=== PATIENT | male | born 1930 | race Asian ===

== ENCOUNTER 2016-06-08 23:17 | Emergency (ER) | payer OTHER ==
--- NOTE | 2016-06-08 23:28 | PDOC ---
History of Present Illness <Sudhir Saucedo - Last Filed: 06/09/16 03:27> - General History Source: Patient Exam Limitations: No Limitations - History of Present Illness Initial Comments: 06/09/16 00:21 The patient is a 86-year-old male, with a significant past medical history of HTN, hypercholesterolemia, on diuretics, who presents to the emergency department via EMS with nasal congestion and a headache for 6 weeks. The patient reports that his headache is severe. He reports he cannot breath through his nose due to the nasal congestion. He reports associated rhinorrhea and tactile fever. As per EMS, his blood pressure was 157/90. The patient understands but does not speak Bhutanese. We used a Belarusian cryptographer. The patient denies chest pain, shortness of breath, and dizziness. The patient denies chills, abdominal pain, nausea, vomit, diarrhea and constipation. The patient denies dysuria, frequency, urgency and hematuria. Allergies: None reported Past surgical history: None reported <Daniella Ventura - Last Filed: 06/09/16 03:29> - General Stated Complaint: SINUS INFECTION Time Seen by Provider: 06/08/16 23:27 Past History <Sudhir Saucedo - Last Filed: 06/09/16 03:27> <Daniella Ventura - Last Filed: 06/09/16 03:29> - Past Medical History Allergies/Adverse Reactions: Allergies Allergy/AdvReac Type Severity Reaction Status Date / Time No Known Allergies Allergy Verified 06/09/16 00:20 Home Medications: Ambulatory Orders Amox-Tr/K Cl [Augmentin - 875Mg Tablet] 1 tab PO BID #20 tablet 06/09/16 Atorvastatin Ca [Lipitor] 10 mg PO DAILY 06/09/16 Diltiazem Cd [Cardizem Cd -] 300 mg PO DAILY 06/09/16 Docusate Sodium [Colace -] 100 mg PO DAILY 06/09/16 Doxazosin Mesylate [Cardura] 4 mg PO DAILY 06/09/16 Esomeprazole Magnesium [Nexium 24Hr] 20 mg PO DAILY 06/09/16 Fluticasone Prop 0.05% Nasal [Flonase -] 1 - 2 spray NS DAILY #1 spray.pump 07/23 Loratadine [Alavert] 10 mg PO DAILY 06/09/16 Multivit-Min/Iron Fum/Folic AC [Pprgq-Oewbwhj-Qnqpmtkc Tablet] 1 each PO DAILY 06/09/16 [place]-3 Acid Ethyl Esters [Lovaza -] 2,000 mg PO BID 06/09/16 Review of Systems - Review of Systems Able to Perform ROS?: Yes Comments:: 06/09/16 00:21 CONSTITUTIONAL: Present: (+) fever Absent: chills, diaphoresis, generalized weakness, malaise, loss of appetite HEENT: Present: (+) rhinorrhea, (+) nasal congestion Absent: throat pain, throat swelling, difficulty swallowing, mouth swelling, ear pain, eye pain, visual changes CARDIOVASCULAR: Absent: chest pain, syncope, palpitations, irregular heart rate, lightheadedness , peripheral edema RESPIRATORY: Absent: cough, shortness of breath, dyspnea with exertion, orthopnea, wheezing, stridor, hemoptysis GASTROINTESTINAL: Absent: abdominal pain, abdominal distension, nausea, vomiting, diarrhea, constipation, melena, hematochezia GENITOURINARY: Absent: dysuria, frequency, urgency, hesitancy, hematuria, flank pain, genital pain MUSCULOSKELETAL: Absent: myalgia, arthralgia, joint swelling SKIN: Absent: rash, itching, pallor HEMATOLOGIC/IMMUNOLOGIC: Absent: easy bleeding, easy bruising, lymphadenopathy, frequent infections ENDOCRINE: Absent: unexplained weight gain, unexplained weight loss, heat intolerance, cold intolerance NEUROLOGIC: Present: (+) headache Absent: focal weakness or paresthesias, dizziness, unsteady gait, seizure, mental status changes, bladder or bowel incontinence PSYCHIATRIC: Absent: anxiety, depression, suicidal or homicidal ideation, hallucinations. Is the patient limited Bhutanese proficient: Yes <Daniella Ventura - Last Filed: 06/09/16 03:29> *Physical Exam - Vital Signs Last Vital Signs Temp Pulse Resp BP Pulse Ox 97.3 F L 69 19 137/89 97 06/09/16 00:16 06/09/16 00:16 06/09/16 00:16 06/09/16 00:16 06/09/16 00:16 - Physical Exam Comments: 06/09/16 00:21 GENERAL: Well developed, well nourished. Awake and alert. In no acute distress. HEENT: (+) Some post-nasal drip. (+) Exudate in both nostrils, more on the left. Normocephalic, atraumatic. PERRLA, EOMI. No conjunctival pallor. Sclera are non- icteric. Moist mucous membranes. NECK: Supple. Full ROM. No JVD. Carotid pulses 2+ and symmetric, without bruits. No thyromegaly. No lymphadenopathy. CARDIOVASCULAR: Regular rate and rhythm. No murmurs, rubs, or gallops. Distal pulses are 2+ and symmetric. PULMONARY: (+) Some crackles at the lung bases. No wheezing, rales or rhonchi. ABDOMINAL: Soft. Non-tender. Non-distended. No rebound or guarding. No organomegaly. Normoactive bowel sounds. MUSCULOSKELETAL Normal range of motion at all joints. No bony deformities or tenderness. No CVA tenderness. EXTREMITIES: No cyanosis. No clubbing. No peripheral edema. No calf tenderness. SKIN: Warm and dry. Normal capillary refill. No rashes. No jaundice. NEUROLOGICAL: Alert, awake, appropriate. Cranial nerves 2-12 intact. No deficits to light touch and temperature in face, upper extremities and lower extremities. No motor deficits in the in face, upper extremities and lower extremities. Normoreflexic in the upper and lower extremities. Normal speech. Toes are downgoing bilaterally. Gait is normal. PSYCHIATRIC: Cooperative. Good eye contact. Appropriate mood and affect. <Daniella Ventura - Last Filed: 06/09/16 03:29> ED Treatment Course - LABORATORY CBC & Chemistry Diagram: 06/09/16 00:45 06/09/16 00:45 <Sudhir Saucedo - Last Filed: 06/09/16 03:27> - LABORATORY CBC & Chemistry Diagram: 06/09/16 00:45 06/09/16 00:45 - RADIOLOGY Radiograph Interpretation: 06/09/16 03:28 CT HEAD W/O CONTRAST FINDINGS: There is no CT evidence of acute territorial infarction. Patchy periventricular and subcortical white matter hypoattenuations seen. These are nonspecific and can be seen in the setting of chronic microvascular ischemic changes. Intracranial vascular calcifications noted. There is no acute intracranial hemorrhage, mass effect or cerebral edema identified. The ventricles are unremarkable. Basilar cisterns are patent. No abnormal intra- axial or extra-axial fluid collection is seen. The bones of the calvarium and imaged skull base demonstrate no acute abnormality. The imaged paranasal sinuses are unremarkable. Bilateral mastoid air cells are underpneumatized. There is cavity is clear. Amorphous soft tissue in the right external auditory canal suggestive of cerumen. Imaged orbits demonstrate no acute abnormality. THIS DOCUMENT HAS BEEN ELECTRONICALLY SIGNED Chapo Nixon MD. CT SINUS W/O CONTRAST IMPRESSION: Paranasal sinus because of thickening noted most pronounced in bilateral maxillary sinuses with a suggestion of small fluid levels. Although nonspecific, these findings can be seen in the setting of acute sinusitis. No evidence of osseous erosions. No acute fracture. Bilateral temporomandibular joint and craniocervical junction are intact. No acute abnormality the visualized orbits or intracranial structures. Sequela bilateral lens extraction. THIS DOCUMENT HAS BEEN ELECTRONICALLY SIGNED Chapo Nixon MD. CHEST XR IMPRESSION: Nonspecific increased left lower lobe opacities may represent atelectasis, pneumonia versus stigmata of aspiration. Blunting of the bilateral costophrenic angles, left more than right common represent atelectasis and/or trace pleural effusions. Cardiomegaly. Aortic calcifications. 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 High riding humeral head with pseudoarthrosis suggestive of chronic rotator cuff tears. THIS DOCUMENT HAS BEEN ELECTRONICALLY SIGNED Chapo Nixon MD. <Daniella Ventura - Last Filed: 06/09/16 03:29> *DC/Admit/Observation/Transfer - Discharge Dispostion Admit: No <Sudhir Saucedo - Last Filed: 06/09/16 03:27> - Attestations Scribe Attestion: 06/09/16 00:22 Documentation prepared by Daniella Ventura, acting as certified medical dosimetrist for Sudhir Saucedo MD. <Daniella Ventura - Last Filed: 06/09/16 03:29> Diagnosis at time of Disposition: Sinusitis - Discharge Dispostion Disposition: HOME Condition at time of disposition: Stable - Prescriptions Prescriptions: Amox-Tr/K Cl [Augmentin - 875Mg Tablet] 1 tab PO BID #20 tablet Fluticasone Prop 0.05% Nasal [Flonase -] 1 - 2 spray NS DAILY #1 spray.pump - Patient Instructions Printed Discharge Instructions: Sinusitis Additional Instructions: follow up with your doctor Saturday or Saturday; return if worse.
[2016-06-09 00:21] VITALS: BP 137/89; PULSE 69; TEMP 97.3; BMI 21.2
[2016-06-09 00:56] LABS: BASOPHIL 1.1 % (0-2.0); EOSINOPHIL 11.1 % (0-4.5); MCH 31.4 pg (25.7-33.7); MCHC 34.2 g/dl (32.0-35.9); MEAN CELL VOLUME 91.8 fl (80-96); MEAN PLT VOLUME 7.2 fl (7.5-11.1); NEUTROPHILS 55.1 % (42.8-82.8); PLATELET COUNT 173 K/MM3 (134-434); RDW 15.1 % (11.9-15.9)
[2016-06-09 01:19] LABS: URINE APPEARANCE CLEAR; URINE BILIRUBIN NEGATIVE (NEGATIVE); URINE BLOOD NEGATIVE (NEGATIVE); URINE COLOR LTYELLOW; URINE GLUCOSE (UA) NEGATIVE (NEGATIVE); URINE KETONE NEGATIVE (NEGATIVE); URINE LEUK ESTERASE NEGATIVE (NEGATIVE); URINE NITRITE NEGATIVE (NEGATIVE); URINE PROTEIN NEGATIVE (NEGATIVE); URINE UROBILINOGEN NEGATIVE E.U./dl (0.2-1.0)
[2016-06-09 01:48] LABS: ALBUMIN 3.5 g/dl (3.4-5.0); ALK PHOS 46 U/L (45-117); ANION GAP 9 (8-16); BILIRUBIN,TOTAL 0.4 mg/dL (0.2-1.0); CALCIUM 8.7 mg/dL (8.5-10.1); CO2 26 mmol/L (21-32); CREATININE 1.1 mg/dL (0.7-1.3); GLUCOSE,RANDOM 95 mg/dL (74-106); SGOT/AST 15 U/L (15-37); SGPT/ALT 20 U/L (12-78); TOT PROT 7.2 g/dl (6.4-8.2)
[2016-06-09] MEDS ORDERED: AMPICILLIN NA/SULBACTAM NA 3 GM in SODIUM CHLORIDE 100 ML IVPB ONE (02:46)
== END 2016-06-09 04:36 | disposition home or self-care (01) ==
LOC: JER 23:17
DX: J01.00 Acute maxillary sinusitis, unspecified (principal); I10 Essential (primary) hypertension; E78.00 Pure hypercholesterolemia, unspecified
CPT/HCPCS: 36415; 70450-TC; 70486-TC; 71020-TC; 80053; 81003; 85025; 87086; 96365; 99282-25

== ENCOUNTER 2019-02-13 08:58 | Inpatient (IN) | payer OTHER ==
--- NOTE | 2019-02-13 09:35 | PDOC ---
History of Present Illness - General Chief Complaint: Injury Stated Complaint: FALL Time Seen by Provider: 02/13/19 09:15 History Source: Care Provider, Family, Assistant Community Director Used Exam Limitations: Clinical Condition, Language Barrier - History of Present Illness Initial Comments: 02/13/19 09:33 88 YOM with h/o HTN, HLD, dementia, hearing loss presenting after unwitnessed fall and unknown down time. BIB his home health aid Mr Whatley, who found him on the floor moaning when he came for a visit today. Per daughter via phone, in the last 2 months - he has experienced frequent falls, 2-3X during this time. he has had increased levels of confusion and difficulty moving/walking due to his progressive decline/dementia. No ASA or anticoagulants. Mr Whatley care provider, home health aid 3X/week history limited due to patient's dementia and hearing impairment. freight conductor via Pashto used and collateral information from daughter. daughter: [phone] Lonnie Whatley 02/13/19 09:40 02/13/19 09:46 02/13/19 09:49 Past History - Past Medical History Allergies/Adverse Reactions: Allergies Allergy/AdvReac Type Severity Reaction Status Date / Time No Known Allergies Allergy Verified 02/13/19 09:45 Home Medications: Ambulatory Orders Atorvastatin Ca [Lipitor] 10 mg PO DAILY 06/09/16 Diltiazem Cd [Cardizem Cd -] 300 mg PO DAILY 06/09/16 Doxazosin Mesylate [Cardura] 4 mg PO DAILY 06/09/16 Multivit-Min/Iron Fum/Folic AC [Xfjyb-Gaxwjzv-Zkbbcqzl Tablet] 1 each PO DAILY 06/09/16 Lubiprostone [Amitiza] 24 mcg PO ASDIR 02/13/19 - Surgical History GI Surgery: Yes (Gallstone) - Psycho Social/Smoking Cessation Hx Smoking History: Never smoked Hx Alcohol Use: No Drug/Substance Use Hx: No Substance Use Type: None Review of Systems - Review of Systems Able to Perform ROS?: No (dementia, clinical cond) *Physical Exam - Physical Exam Comments: 02/13/19 09:42 Physical exam General: awake and alert, NAD. HEENT: normocephalic. +left eyebrow vertical superficial abrasion. nonbleeding , nontender, no crepitus. PERRL, EOMI, clear conjunctiva, anicteric, dry mucus membranes, clear oropharynx, no oral lesions.. Neck: neck supple, FROM Resp: CTAB, normal and even respirations, no respiratory distress CVS: RRR, no murmurs, 2+ peripheral pulses throughout, no peripheral edema Abdomen: soft, NTND, no rebound or guarding. Back: nontender, normal inspection and ROM MSK: no edema, CARRERA x4, ROM intact. No clubbing or cyanosis. normal bulk and tone, pelvis stable, FROM in prox and distal joints.. Extremities: no calf tenderness Neuro: alert, demented, speech clear. Psych: Calm and cooperative Skin: warm and well perfused, cap refill <2 sec, normal color, no rash or skin discoloration. Heart Score/ECG Review #1 ECG reviewed & interpreted by me at: 09:40 General ECG Interpretation: Normal Rate Compared to previous ECG there are: Previous ECG unavail 02/13/19 09:47 EKG normal sinus rhythm at 72 bpm, narrow QRS, ST and T wave segments and morphology normal. + T wave abnormalities with deep TWI in V1-6. some limitations with artifact. ED Treatment Course - LABORATORY CBC & Chemistry Diagram: 02/14/19 05:55 02/14/19 05:55 - RADIOLOGY Radiology Studies Ordered: Category Date Time Status CERVICAL SPINE CT W/O CONTR [CT] Stat CT Scan 02/13/19 09:[address] W/O CONTRAST [CT] Stat CT Scan 02/13/19 09:[address] WITHOUT CONTRAST [CT] Stat CT Scan 02/13/19 09:28 Ordered CHEST PA & LAT [RAD] Stat Radiology 02/13/19 09:29 Ordered Medical Decision Making - Critical Care Time Total Critical Care Time (minutes): 45 (metabolic crisis, rhabdomyolysis, NSTEMI ) Critical Care Statement: The care of this patient involved high complexity decision making to prevent further life threatening deterioration of the patient 's condition and/or to evaluate & treat vital organ system(s) failure or risk of failure. - Medical Decision Making 02/13/19 10:07 Vital Signs Temp Pulse Resp BP Pulse Ox 97 F L 74 18 144/86 100 02/13/19 09:52 02/13/19 09:37 02/13/19 09:37 02/13/19 09:37 02/13/19 09:37 Vital signs are within normal limits, afebrile rectally. Fingerstick is 80. Frontal diagnosis includes rhabdomyolysis, acute kidney injury, dehydration, electrolyte/metabolic derangements, ACS, arrhythmia, ICH, CVA, facial fracture, contusion, cervical spine injury/fracture, infection EKG is as documented with diffuse T wave inversions primarily in the anterolateral leads, no priors to compare to. This is concerning for ischemic process versus intracranial hemorrhage so will expedite CT imaging. Cardiac enzymes, basic labs and lites, creatinine function indicated. There is straightening of the cervical spine, multilevel degenerative disc disease, no acute fracture subluxation is seen, CT head with chronic sinusitis without evidence of intracranial bleed, there is moderate volume loss and ventricular dilatation, no infarction or hemorrhage. No facial fractures noted. Xray of pelvis with ?impacted/shortening of rt femoral neck, will get CT pelvis to elucidate this; CT pelvis with subacute sacral alae fx, but no pelvic/hip fx acutely. analgesia given copious IVF hydration to flush kidneys for rhabdo. Laboratory findings are significant for normal CBC, creatinine is elevated at 1.7 and CK level/troponins are also significantly elevated. Patient has evidence of acute rhabdomyolysis with new onset renal insufficiency, baseline is normal from 2017, today creatinine is 1.7. Troponin also elevated 0.15 this could most likely be metabolic/demand ischemia with EKG changes noted, deep T wave inversions in anterolateral distribution. No elevations or depressions are noted. Patient is to get Toth catheter, IV fluid hydration and admission to telemetry for rhabdomyolysis/BRUNILDA/elevated troponins. 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 spoke with Dr Sorto, will come to evaluate and agree likely metabolic related/demand ischemia. admit to Dr Kay s/o to Dr Roach 02/14/19 11:03 Discharge - Discharge Information Problems reviewed: Yes Clinical Impression/Diagnosis: Rhabdomyolysis, BRUNILDA (acute kidney injury), Elevated troponin Condition: Guarded - Admission Yes - Follow up/Referral - Patient Discharge Instructions - Post Discharge Activity
[2019-02-13] MEDS ORDERED: SODIUM CHLORIDE 0.9% 500 ML INFUS.BAG IV ONE ×2 (09:48→10:47)
[2019-02-13 10:19] VITALS: BMI 25.0
[2019-02-13 10:23] LABS: BASO % 0.7 % (0-2.0); EOS % 4.8 % (0-4.5); HEMATOCRIT 35.6 % (35.4-49); HEMOGLOBIN 12.2 GM/dL (11.7-16.9); LYMPH % 6.7 % (8-40); MCH 32.2 pg (25.7-33.7); MCHC 34.3 g/dl (32.0-35.9); MEAN CELL VOLUME 93.9 fl (80-96); MEAN PLT VOLUME 7.4 fl (7.5-11.1); MONO % 6.1 % (3.8-10.2); NEUT % 81.7 % (42.8-82.8); PLATELET COUNT 230 K/MM3 (134-434); RBC 3.79 M/mm3 (4.00-5.60); RDW 14.5 % (11.9-15.9); WHITE BLOOD COUNT 7.5 K/mm3 (4.0-10.0)
[2019-02-13 10:35] LABS: INR 1.05 (0.83-1.09); PROTHROMBIN TIME (PATIENT) 12.4 SEC (9.7-13.0)
[2019-02-13 11:05] LABS: BILIRUBIN,TOTAL 0.7 mg/dL (0.2-1); BLOOD UREA NITROGEN 34.1 mg/dL (7-18); CALCIUM 8.6 mg/dL (8.5-10.1); CREATININE 1.7 mg/dL (0.55-1.3); POTASSIUM 4.8 mmol/L (3.5-5.1); TOT PROT 6.5 g/dl (6.4-8.2)
[2019-02-13 11:06] LABS: EPI CELLS 4.3 /HPF (0-5/HPF); HYALINE CASTS 2 /lpf (0-8); URINE APPEARANCE CLEAR; URINE BACTERIA 3.6 /hpf (NEGATIVE); URINE BILIRUBIN NEGATIVE (NEGATIVE); URINE COLOR YELLOW; URINE GLUCOSE (UA) NEGATIVE (NEGATIVE); URINE KETONE NEGATIVE (NEGATIVE); URINE LEUK ESTERASE NEGATIVE (NEGATIVE); URINE NITRITE NEGATIVE (NEGATIVE); URINE PROTEIN NEGATIVE (NEGATIVE); URINE RBC 9 /hpf (0-4); URINE UROBILINOGEN 0.2 mg/dL (0.2-1.0); URINE WBC 2 /hpf (0-5)
[2019-02-13] MEDS: LACTATED RINGERS SOLUTION 1,000 ML/1,000 ML INFUS.BAG IV SCH ×2 (12:32→17:29)
--- NOTE | 2019-02-13 12:41 | HP ---
CHIEF COMPLAINT: Unwitnessed fall PCP: Dr. Lonnie Whatley HISTORY OF PRESENT ILLNESS: 88yo Luxembourgish and Sammarinese speaking M with h/o HTN, HLD, mild dementia, and atrial fibrillation who presents today after unwitnessed mechanical fall. Pt's SHEEP FARM WORKER presented with him and per ER sign-off, the SHEEP FARM WORKER found the patient collapsed on the floor. The SHEEP FARM WORKER only comes 3x per week and it is unknown how long the patient had fallen on the floor. The patient did not have any deviation from baseline mentation per the aide and didn't see any signs of urinary or bowel incontinence. Pt was sent here for further evaluation. Upon workup pt was found to have elevated CPK with BRUNILDA.. Daughter (Juanjo) was caled , however she is not in close touch with her father and did not have any significant medical information. 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 WORKER 3x/wk Allergies No Known Allergies Allergy (Verified 02/13/19 09:45) HOME MEDICATIONS: Home Medications Medication Instructions Recorded Atorvastatin Ca [Lipitor] 10 mg PO DAILY 06/09/16 Diltiazem Cd [Cardizem Cd -] 300 mg PO DAILY 06/09/16 Doxazosin Mesylate [Cardura] 4 mg PO DAILY 06/09/16 Multivit-Min/Iron Fum/Folic AC 1 each PO DAILY 06/09/16 [Sgkjx-Ormhelh-Jaypmuyb Tablet] Lubiprostone [Amitiza] 24 mcg PO ASDIR 02/13/19 REVIEW OF SYSTEMS Not able to obtain due to language and clinical barriers PHYSICAL EXAMINATION Vital Signs - 24 hr 02/13/19 02/13/19 02/13/19 09:14 09:37 09:52 Temperature 98 F 98 F 97 F L Pulse Rate 74 Pulse Rate [ Left Radial] Respiratory 18 Rate Blood Pressure 144/86 Blood Pressure [Left Arm] O2 Sat by Pulse 100 100 Oximetry (%) 02/13/19 10:57 Temperature 97.2 F L Pulse Rate Pulse Rate [ 88 Left Radial] Respiratory 18 Rate Blood Pressure Blood Pressure 144/88 [Left Arm] O2 Sat by Pulse 100 Oximetry (%) GENERAL: Awake, alert, and fully oriented, in no acute distress. HEENT: NC, L vertical eyebrow superficial laceration, no ecchymotic areas, no hematomas of cranium, facial bone stability, MMM NECK: No JVD LUNGS: CTA bilaterally. No wheezes, and no crackles. No accessory muscle use. HEART: RRR, normal S1 and S2 with 3/6 crescendo-decrescendo murmur heard in all aspects. No carotid radiation. No radiation to axilla ABDOMEN: Soft, nontender, not distended, normoactive bowel sounds, no guarding, no rebound, no masses. No hepatomegaly or splenomegaly. MUSCULOSKELETAL: Normal range of motion at all joints. No bony deformities or tenderness. No CVA tenderness. UPPER EXTREMITIES: 2+ pulses, warm, well-perfused. No cyanosis. No clubbing. No peripheral edema. LOWER EXTREMITIES: 2+ pulses, warm, well-perfused. No calf tenderness. No peripheral edema. NEUROLOGICAL: Cranial nerves II-XII intact. Normal speech. Normal gait. PSYCHIATRIC: Cooperative. Good eye contact. Appropriate mood and affect. SKIN: Warm, dry, normal turgor, no rashes or lesions noted, normal capillary refill. Laboratory Results - last 24 hr 02/13/19 02/13/19 02/13/19 09:45 10:00 10:00 WBC 7.5 RBC 3.79 L Hgb 12.2 Hct 35.6 MCV 93.9 MCH 32.2 MCHC 34.3 RDW 14.5 Plt Count 230 D MPV 7.4 L Absolute Neuts (auto) 6.1 Neutrophils % 81.7 D Lymphocytes % 6.7 L D Monocytes % 6.1 Eosinophils % 4.8 H Basophils % 0.7 Nucleated RBC % 0 PT with INR INR Sodium 142 Potassium 4.8 Chloride 110 H Carbon Dioxide 26 Anion Gap 6 L BUN 34.1 H Creatinine 1.7 H Est GFR (CKD-EPI)AfAm 40.82 Est GFR (CKD-EPI)NonAf 35.22 POC Glucometer 80 Random Glucose 87 Lactic Acid Calcium 8.6 Total Bilirubin 0.7 AST 67 H ALT 29 Alkaline Phosphatase 55 Creatine Kinase 1119 H Creatine Kinase Index 1.5 CK-MB (CK-2) 17.4 H Troponin I 0.15 H Total Protein 6.5 Albumin 3.0 L Urine Color Urine Appearance Urine pH Ur Specific [place] Urine Protein Urine Glucose (UA) Urine Ketones Urine Blood Urine Nitrite Urine Bilirubin Urine Urobilinogen Ur Leukocyte Esterase Urine WBC (Auto) Urine RBC (Auto) Urine Casts (Auto) U Epithel Cells (Auto) Urine Bacteria (Auto) 02/13/19 02/13/19 02/13/19 10:00 10:00 10:00 WBC RBC Hgb Hct MCV MCH MCHC RDW Plt Count MPV Absolute Neuts (auto) Neutrophils % Lymphocytes % Monocytes % Eosinophils % Basophils % Nucleated RBC % PT with INR 12.40 INR 1.05 Sodium Potassium Chloride Carbon Dioxide Anion Gap BUN Creatinine Est GFR (CKD-EPI)AfAm Est GFR (CKD-EPI)NonAf POC Glucometer Random Glucose Lactic Acid 1.7 Calcium Total Bilirubin AST ALT Alkaline Phosphatase Creatine Kinase Creatine Kinase Index CK-MB (CK-2) Troponin I Total Protein Albumin Urine Color Yellow Urine Appearance Clear Urine pH 5.0 Ur Specific [place] 1.012 Urine Protein Negative Urine Glucose (UA) Negative Urine Ketones Negative Urine Blood 1+ H Urine Nitrite Negative Urine Bilirubin Negative Urine Urobilinogen 0.2 Ur Leukocyte Esterase Negative Urine WBC (Auto) 2 Urine RBC (Auto) 9 Urine Casts (Auto) 2 U Epithel Cells (Auto) 4.3 Urine Bacteria (Auto) 3.6 ASSESSMENT/PLAN: Unwitnessed fall Rhabdomyolysis Acute kidney injury History of HTN Hx of HLD Paroxysmal Atrial fibrillation Dementia --Unwitnessed fall with no notable imaging findings --r/o syncopal event; low suspicion for any seizure activity due to lack of signs and minimally elevated LA --High suspicion for either pure mechanical vs. orthostasis 2/2 to polypharmacy --Orthostatic vital signs --Telemetry monitoring --Fall precautions --Ordered echocardiogram due to murmur to r/o any severe valvular pathology --Trend troponin; suspect demand ischemia --XRays reviewed; Pt with questionable R hip fracture? --Pelvis and Lower extremity CT ordered --If Fracture will consult orthopedics for recommendations --Hydrate with LR@100cc/hr for 1bag --Trend CPK levels after hydration --Avoid nephrotoxic agents --After hydration will reassess lung status and can continue hydration if okay FEN: Fluids: LR@100cc/hr Electrolyte abnormalities: None Nutrition: Regular PPX: DVT - SCds Gi - Not indicated Dispo: Telemetry admit Case discussed with Dr. Alysha Roach, DO - IM PGY-3 Visit type - Emergency Visit Emergency Visit: Yes ED Registration Date: 02/13/19 Care time: The patient presented to the Emergency Department on the above date and was hospitalized for further evaluation of their emergent condition. - New Patient This patient is new to me today: Yes Date on this admission: 02/13/19 - Critical Care Critical Care patient: No ATTENDING PHYSICIAN STATEMENT I saw and evaluated the patient. I reviewed the resident's note and discussed the case with the resident. I agree with the resident's findings and plan as documented. SUBJECTIVE: OBJECTIVE: ASSESSMENT AND PLAN:
--- NOTE | 2019-02-13 12:46 | PN ---
Teaching Attending Note Name of Resident: Justin Roach ATTENDING PHYSICIAN STATEMENT I saw and evaluated the patient. I reviewed the resident's note and discussed the case with the resident. I agree with the resident's findings and plan as documented. SUBJECTIVE: Patient is a 88yo English and Polish speaking male with PMhx of HTN, HLD, mild dementia, and atrial fibrillation who presents to Ed. after unwitnessed mechanical fall. Daughter (Juanjo) was called , however she is not in close touch with her father and did not have any significant medical information. OBJECTIVE: Vital Signs Temperature 97.2 F L 02/13/19 10:57 Pulse Rate 88 02/13/19 10:57 Respiratory Rate 18 02/13/19 10:57 Blood Pressure 144/88 02/13/19 10:57 O2 Sat by Pulse Oximetry (%) 100 02/13/19 10:57 GENERAL: The patient is HARD of hearing, demented, in no acute distress. HEAD: Normal with no signs of trauma. EYES: PERRL, extraocular movements intact, sclera anicteric, conjunctiva clear. ENT: Ears normal, oropharynx clear without exudates, moist mucous membranes. NECK: Trachea midline, full range of motion, supple. LUNGS: Breath sounds equal, clear to auscultation bilaterally, no wheezes, no crackles, no accessory muscle use. HEART: Regular rate and rhythm, S1, S2 positive, JERICHO 3/6 murmur, no rub or gallop. ABDOMEN: Soft, nontender, nondistended, normoactive bowel sounds, no guarding, no rebound, no hepatosplenomegaly, no masses. EXTREMITIES: 2+ pulses, warm, well-perfused, no edema. NEUROLOGICAL: Cranial nerves II through XII grossly intact. unable to assess further since patient has dementia . SKIN: Warm, dry, normal turgor, no rashes or lesions noted CBCD WBC 7.5 K/mm3 (4.0-10.0) 02/13/19 10:00 RBC 3.79 M/mm3 (4.00-5.60) L 02/13/19 10:00 Hgb 12.2 GM/dL (11.7-16.9) 02/13/19 10:00 Hct 35.6 % (35.4-49) 02/13/19 10:00 MCV 93.9 fl (80-96) 02/13/19 10:00 MCHC 34.3 g/dl (32.0-35.9) 02/13/19 10:00 RDW 14.5 % (11.9-15.9) 02/13/19 10:00 Plt Count 230 K/MM3 (134-434) D 02/13/19 10:00 MPV 7.4 fl (7.5-11.1) L 02/13/19 10:00 CMP Sodium 142 mmol/L (136-145) 02/13/19 10:00 Potassium 4.8 mmol/L (3.5-5.1) 02/13/19 10:00 Chloride 110 mmol/L (98-107) H 02/13/19 10:00 Carbon Dioxide 26 mmol/L (21-32) 02/13/19 10:00 Anion Gap 6 MMOL/L (8-16) L 02/13/19 10:00 BUN 34.1 mg/dL (7-18) H 02/13/19 10:00 Creatinine 1.7 mg/dL (0.55-1.3) H 02/13/19 10:00 Random Glucose 87 mg/dL (74-106) 02/13/19 10:00 Calcium 8.6 mg/dL (8.5-10.1) 02/13/19 10:00 Total Bilirubin 0.7 mg/dL (0.2-1) 02/13/19 10:00 AST 67 U/L (15-37) H 02/13/19 10:00 ALT 29 U/L (13-61) 02/13/19 10:00 Alkaline Phosphatase 55 U/L (45-117) 02/13/19 10:00 Total Protein 6.5 g/dl (6.4-8.2) 02/13/19 10:00 Albumin 3.0 g/dl (3.4-5.0) L 02/13/19 10:00 CARDIAC ENZYMES Creatine Kinase 1119 U/L (26-308) H 02/13/19 10:00 Troponin I 0.15 ng/ml (0.00-0.05) H 02/13/19 10:00 Current Medications Generic Name Dose Route Start Last Admin Trade Name Freq PRN Reason Stop Dose Admin Atorvastatin Calcium 10 mg 02/14/19 10:00 Lipitor - PO DAILY [facility] Diltiazem HCl 300 mg 02/14/19 10:00 Cardizem Cd - PO DAILY [facility] Doxazosin Mesylate 4 mg 02/14/19 10:00 Cardura - PO DAILY [facility] Lactated Ringer's 1,000 ml in 1,000 mls @ 100 mls/hr 02/13/19 12:15 02/13/19 12:32 Lactated Ringers Solution IV 02/13/19 22:14 100 mls/hr ASDIR [facility] Administration Home Medications Medication Instructions Recorded Atorvastatin Ca [Lipitor] 10 mg PO DAILY 06/09/16 Diltiazem Cd [Cardizem Cd -] 300 mg PO DAILY 06/09/16 Doxazosin Mesylate [Cardura] 4 mg PO DAILY 06/09/16 Multivit-Min/Iron Fum/Folic AC 1 each PO DAILY 06/09/16 [Wiefi-Tzbiixv-Jujowaza Tablet] Lubiprostone [Amitiza] 24 mcg PO ASDIR 02/13/19 ASSESSMENT AND PLAN: Patient is a 88yo English and Polish speaking male with PMhx of HTN, HLD, dementia, and atrial fibrillation who presents to Ed. after unwitnessed mechanical fall. # Unwitnessed fall: possible due to Cardura ; syncope vs arrythmia , admit in tele, cardio consult, echo, cardio consult , check orthostatic #P-Afib: on cardizam CD continue , trops. trend #Acute Rhabdomyolysis: IVF, CPK level 11K #Acute kidney injury cr 1.7: unknown baseline , monitor, IVF #Hx of HTN: continue home meds # Hx of HLD: hold lipitor for now since patient is in acute rhabdo #Dementia: will do dementia w/u b12, folic acid, TSh level DVT Px: - SCds Dispo: Telemetry admit Daughter (Juanjo) was called , however she is not in close touch with her father and did not have any significant medical information.
[2019-02-13] MEDS ORDERED: ACETAMINOPHEN 1000 MG/100 ML VIAL (NON FORMULARY) IVPB ONE (13:06)
[2019-02-13] MEDS ORDERED: ACETAMINOPHEN INJECTION 100 ML IVPB ONE (13:10)
--- NOTE | 2019-02-13 14:35 | ECHO ---
Name: SLOANE ACKERMAN Exam:Adult Echocardiogram Study Date: 02/13/2019 01:33 PM Age: 88 yrs Reason For Study: r/o valvular pathology Height: 65 in Weight: 150 lb BSA: 1.8 m2 Left Ventricle There is mild concentric left ventricular hypertrophy. Left ventricular systolic function is normal. Ejection Fraction = 55-60%. Right Ventricle The right ventricle is normal in size and function. Atria Normal left and right atrial size and function. Mitral Valve The mitral valve is normal in structure and function. There is no mitral valve stenosis. There is mil d mitral regurgitation. Tricuspid Valve The tricuspid valve is normal in structure and function. There is mild tricuspid regurgitation. Aortic Valve There is moderate to severe aortic valve thickening. Mild valvular aortic stenosis. Trace aortic regurgitation. Pulmonic Valve The pulmonic valve is not well seen, but is grossly normal. There is no pulmonic valvular stenosis. T here is no pulmonic valvular regurgitation. Great Vessels Mild aortic root dilatation. Pericardium/Pleura Trivial pericardial effusion not hemodynamically significant. Interpretation Summary There is mild concentric left ventricular hypertrophy. Left ventricular systolic function is normal. The right ventricle is normal in size and function. There is mild mitral regurgitation. There is mild tricuspid regurgitation. Mild valvular aortic stenosis. Trace aortic regurgitation. Mild aortic root dilatation. Trivial pericardial effusion not hemodynamically significant MD Peguero *Piper 02/13/2019 02:34 PM
--- NOTE | 2019-02-13 16:24 | CON.CARD ---
Consult Consult Specialty:: Cardiology Reason for Consultation:: Postive troponin. Abnormal EKG - History of Present Illness Chief Complaint: Found on the floor History of Present Illness: This is an 88 year old male with a PMH of HTN, HLD, mild dementia, and atrial fibrillation who presents today after unwitnessed mechanical fall. He was found on the floor by his [employer], he may have been there for many hours. Found to have ^ CPK, BRUNILDA, postive troponins, and T wave abnormalities on EKG. - Alcohol/Substance Use Hx Alcohol Use: No - Smoking History Smoking history: Never smoked Home Medications - Allergies Allergies/Adverse Reactions: Allergies Allergy/AdvReac Type Severity Reaction Status Date / Time No Known Allergies Allergy Verified 02/13/19 09:45 - Home Medications Home Medications: Ambulatory Orders Atorvastatin Ca [Lipitor] 10 mg PO DAILY 06/09/16 Diltiazem Cd [Cardizem Cd -] 300 mg PO DAILY 06/09/16 Doxazosin Mesylate [Cardura] 4 mg PO DAILY 06/09/16 Multivit-Min/Iron Fum/Folic AC [Uqruf-Ghzwakf-Henvsuaw Tablet] 1 each PO DAILY 06/09/16 Lubiprostone [Amitiza] 24 mcg PO ASDIR 02/13/19 Vital Signs: Vital Signs Temperature 97.8 F 02/13/19 15:31 Pulse Rate 78 02/13/19 15:31 Respiratory Rate 18 02/13/19 15:31 Blood Pressure 126/73 02/13/19 15:31 O2 Sat by Pulse Oximetry (%) 98 02/13/19 15:31 Constitutional: Yes: No Distress HENT: Yes: WNL, Other (Bruises) Neck: Yes: WNL Respiratory: Yes: CTA Bilaterally Gastrointestinal: Yes: Soft Cardiovascular: Yes: Regular Rate and Rhythm Heart Sounds: Yes: S1, S2 Extremities: Yes: WNL Edema: LLE: Trace, RLE: Trace Neurological: Yes: Other (Dementia) - Other Data Labs, Other Data: CBC, BMP 02/13/19 10:00 02/13/19 10:00 INR, PTT INR 1.05 (0.83-1.09) 02/13/19 10:00 Troponin, BNP 02/13/19 02/13/19 10:00 14:01 Troponin I 0.15 H 0.15 H Troponin, BNP 02/13/19 02/13/19 10:00 14:01 Troponin I 0.15 H 0.15 H Assessment/Plan 88 year old male with a PMH of HTN, HLD, mild dementia, and atrial fibrillation who presents today after unwitnessed mechanical fall. He was found on the floor by his [employer], he may have been there for many hours. Found to have ^CPK, BRUNILDA, postive troponins, and T wave abnormalities on EKG. EKG Low voltage in the limb leads, RAD, PRWP across the anterior precordial leads with TWI V2 - V6. Troponin 0.15 x2 Likely demand ischemia Treat for rhabdo [facility] Medications Medication Instructions Recorded Atorvastatin Ca [Lipitor] 10 mg PO DAILY 06/09/16 Diltiazem Cd [Cardizem Cd -] 300 mg PO DAILY 06/09/16 Doxazosin Mesylate [Cardura] 4 mg PO DAILY 06/09/16 Multivit-Min/Iron Fum/Folic AC 1 each PO DAILY 06/09/16 [Slehv-Ozvcstq-Wtpixzcx Tablet] Lubiprostone [Amitiza] 24 mcg PO ASDIR 02/13/19 Active Medications Atorvastatin Calcium (Lipitor -) 10 mg PO DAILY [facility] Diltiazem HCl (Cardizem Cd -) 300 mg PO DAILY [facility] Doxazosin Mesylate (Cardura -) 4 mg PO DAILY [facility] Lactated Ringer's (Lactated Ringers Solution) 1,000 ml in 1,000 mls @ 100 mls/ hr IV ASDIR [facility] Stop: 02/13/19 22:14
[2019-02-13] MEDS ORDERED: FLU VACCINE QUAD 60 MCG/0.5 ML (MDV 19-20) IM ONE (16:56)
[2019-02-14 07:06] LABS: HEMATOCRIT 29.2 % (35.4-49); HEMOGLOBIN 10.1 GM/dL (11.7-16.9); MCH 32.4 pg (25.7-33.7); MCHC 34.6 g/dl (32.0-35.9); MEAN CELL VOLUME 93.6 fl (80-96); MEAN PLT VOLUME 7.4 fl (7.5-11.1); PLATELET COUNT 219 K/MM3 (134-434); RBC 3.12 M/mm3 (4.00-5.60); RDW 14.8 % (11.9-15.9); WHITE BLOOD COUNT 7.4 K/mm3 (4.0-10.0)
[2019-02-14 07:45] LABS: ALBUMIN 2.2 g/dl (3.4-5.0); BILIRUBIN,TOTAL 0.3 mg/dL (0.2-1); BLOOD UREA NITROGEN 31.8 mg/dL (7-18); CALCIUM 7.7 mg/dL (8.5-10.1); CREATININE 1.6 mg/dL (0.55-1.3); MAGNESIUM 1.8 mg/dL (1.8-2.4); PHOSPHOROUS 3.1 mg/dL (2.5-4.9)
[2019-02-14] MEDS: DOXAZOSIN MESYLATE 4 MG TABLET PO SCH (09:11)
[2019-02-14] MEDS ORDERED: ATORVASTATIN CA 10 MG TABLET (FP) PO SCH (10:00)
--- NOTE | 2019-02-14 11:31 | EKG ---
Test Reason : Blood Pressure : / mmHG Vent. Rate : 072 BPM Atrial Rate : 072 BPM P-R Int : 156 ms QRS Dur : 086 ms QT Int : 466 ms P-R-T Axes : 067 116 090 degrees QTc Int : 510 ms POOR DATA QUALITY, INTERPRETATION MAY BE ADVERSELY AFFECTED NORMAL SINUS RHYTHM RIGHT AXIS DEVIATION LOW VOLTAGE QRS PROLONGED QT ABNORMAL ECG NO PREVIOUS ECGS AVAILABLE Confirmed by JAIME YEPEZ, RAPHAEL ([id number]) on 02/14/2019 11:30:52 AM Referred By: Confirmed By:RAPHAEL SANDOVAL MD
--- NOTE | 2019-02-14 12:12 | PN ---
Physical Exam: SUBJECTIVE: Patient seen and examined. He is sleeping but arousable and appears comfortable. OBJECTIVE: Vital Signs Period Temp Pulse Resp BP Sys/Gallardo Pulse Ox Last 24 Hr 97.5 F-98.9 F 70-85 18-20 120-156/54-78 95-99 GENERAL: The patient is awake, alert, and in no acute distress. LUNGS: Breath sounds equal, clear to auscultation bilaterally, no wheezes, no crackles, no accessory muscle use. HEART: Regular rate and rhythm, S1, S2 without murmur, rub or gallop. ABDOMEN: Soft, nontender, nondistended, normoactive bowel sounds, no guarding, no rebound, no hepatosplenomegaly, no masses. EXTREMITIES: 2+ pulses, warm, well-perfused, no edema. Laboratory Results - last 24 hr 02/13/19 02/13/19 02/14/19 14:01 17:50 00:00 WBC RBC Hgb Hct MCV MCH MCHC RDW Plt Count MPV Sodium Potassium Chloride Carbon Dioxide Anion Gap BUN Creatinine Est GFR (CKD-EPI)AfAm Est GFR (CKD-EPI)NonAf Random Glucose Calcium Phosphorus Magnesium Total Bilirubin AST ALT Alkaline Phosphatase Creatine Kinase Creatine Kinase Index CK-MB (CK-2) Troponin I 0.15 H 0.12 H 0.11 H Total Protein Albumin Vitamin B12 Serum Folate TSH 02/14/19 02/14/19 02/14/19 05:55 05:55 05:55 WBC 7.4 RBC 3.12 L Hgb 10.1 L Hct 29.2 L D MCV 93.6 MCH 32.4 MCHC 34.6 RDW 14.8 Plt Count 219 MPV 7.4 L Sodium 142 Potassium 4.0 Chloride 114 H Carbon Dioxide 25 Anion Gap 3 L BUN 31.8 H Creatinine 1.6 H Est GFR (CKD-EPI)AfAm 43.93 Est GFR (CKD-EPI)NonAf 37.90 Random Glucose 74 Calcium 7.7 L Phosphorus 3.1 Magnesium 1.8 Total Bilirubin 0.3 AST 34 ALT 19 Alkaline Phosphatase 43 L Creatine Kinase 313 H Creatine Kinase Index 1.1 CK-MB (CK-2) 3.6 Troponin I 0.10 H Total Protein 5.0 L Albumin 2.2 L Vitamin B12 607 Serum Folate 3 L TSH 1.46 Active Medications Generic Name Dose Route Start Last Admin Trade Name Freq PRN Reason Stop Dose Admin Diltiazem HCl 300 mg 02/14/19 10:00 02/14/19 09:11 Cardizem Cd - PO 300 mg DAILY [facility] Administration Doxazosin Mesylate 4 mg 02/14/19 10:00 02/14/19 09:11 Cardura - PO 4 mg DAILY [facility] Administration Lactated Ringer's 1,000 ml in 1,000 mls @ 100 mls/hr 02/13/19 12:15 02/13/19 17:29 Lactated Ringers Solution IV 100 mls/hr ASDIR [facility] Administration ASSESSMENT/PLAN: This is an 88 year old man with a history of HTN, atrial fib, hyperlipidemia, dementia who presented to the ED after a fall. 1. Rhabdomyolysis - CK improving with IV fluid - Continue to hold Lipitor 2. s/p fall - Mechanical vs syncope - Continue telemetry monitoring - PT evaluation 3. Demand ischemia - Echo shows mild concentric LVH, normal LV systolic function, LVEF 55-60%, normal RV, mild MR, mild TR, mild , trace AR, trivial pericardial effusion 4. Acute kidney injury - Slight improvement in BUN, creatinine - ? stage 3 CKD - baseline creatinine not known (last available is 1.1 from 2017) 5. HTN - Continue Cardizem CD 6. Hyperlipidemia - Lipitor held secondary to rhabdomyolysis 7. Atrial fibrillation, paroxysmal - Currently in sinus rhythm - Continue Cardizem CD 8. Dementia - Folate level is low - will start supplementation 9. Anemia - Normocytic - Likely secondary to chronic illness - Check iron studies - Monitor hemoglobin Visit type - Emergency Visit Emergency Visit: Yes ED Registration Date: 02/13/19 Care time: The patient presented to the Emergency Department on the above date and was hospitalized for further evaluation of their emergent condition. - New Patient This patient is new to me today: Yes Date on this admission: 02/14/19 - Critical Care Critical Care patient: No - Discharge Referral Referred to [facility] Med P.C.: No
[2019-02-14] MEDS: LACTATED RINGERS SOLUTION 1,000 ML/1,000 ML INFUS.BAG IV SCH (13:22)
[2019-02-14] MEDS: FOLIC ACID 1 MG TABLET (FP) PO SCH (13:22)
[2019-02-15] MEDS ORDERED: MELATONIN 5 MG TABLETS PO ONE (00:40)
[2019-02-15 07:32] LABS: HEMOGLOBIN 9.9 GM/dL (11.7-16.9); MCH 32.1 pg (25.7-33.7); MCHC 34.1 g/dl (32.0-35.9); MEAN PLT VOLUME 7.6 fl (7.5-11.1); PLATELET COUNT 201 K/MM3 (134-434); RBC 3.09 M/mm3 (4.00-5.60); RDW 14.9 % (11.9-15.9); WHITE BLOOD COUNT 7.2 K/mm3 (4.0-10.0)
--- NOTE | 2019-02-15 07:48 | PN ---
Physical Exam: SUBJECTIVE: Patient seen and examined 88 y/o M, pmh of HTN, HLD, mild dementia, and atrial fibrillation, presented s/ p Fall. Pt is currently asymptomatic, afebrile and in usual state of health. Pt denies any overnight issues, or c/o. Denies f/c/n/v/d/sob/chest pain. OBJECTIVE: Last Vital Signs Temp Pulse Resp BP Pulse Ox 98.5 F 64 20 121/54 L 94 L 02/15/19 09:00 02/15/19 09:00 02/15/19 09:00 02/15/19 09:00 02/15/19 09:00 GENERAL: The patient is awake, alert, and fully oriented, in no acute distress. EYES: PERRL, extraocular movements intact ENT: oropharynx clear without exudates, moist mucous membranes. NECK: full range of motion, supple. LUNGS: Breath sounds equal, clear to auscultation bilaterally, no wheezes, no crackles HEART: Regular rate and rhythm, S1, S2 without murmur, rub or gallop. ABDOMEN: Soft, nontender, nondistended, normoactive bowel sounds, no guarding EXTREMITIES: 2+ pulses, warm PSYCH: Normal mood, normal affect. Laboratory Results - last 24 hr WBC 7.2 K/mm3 (4.0-10.0) 02/15/19 06:48 RBC 3.09 M/mm3 (4.00-5.60) L 02/15/19 06:48 Hgb 9.9 GM/dL (11.7-16.9) L 02/15/19 06:48 Hct 29.0 % (35.4-49) L 02/15/19 06:48 MCV 94.0 fl (80-96) 02/15/19 06:48 MCH 32.1 pg (25.7-33.7) 02/15/19 06:48 MCHC 34.1 g/dl (32.0-35.9) 02/15/19 06:48 RDW 14.9 % (11.9-15.9) 02/15/19 06:48 Plt Count 201 K/MM3 (134-434) 02/15/19 06:48 MPV 7.6 fl (7.5-11.1) 02/15/19 06:48 Absolute Neuts (auto) 6.1 K/mm3 (1.5-8.0) 02/13/19 10:00 Neutrophils % 81.7 % (42.8-82.8) D 02/13/19 10:00 Lymphocytes % 6.7 % (8-40) L D 02/13/19 10:00 Monocytes % 6.1 % (3.8-10.2) 02/13/19 10:00 Eosinophils % 4.8 % (0-4.5) H 02/13/19 10:00 Basophils % 0.7 % (0-2.0) 02/13/19 10:00 Nucleated RBC % 0 % (0-0) 02/13/19 10:00 Sodium 141 mmol/L (136-145) 02/15/19 06:48 Potassium 4.3 mmol/L (3.5-5.1) 02/15/19 06:48 Chloride 111 mmol/L (98-107) H 02/15/19 06:48 Carbon Dioxide 26 mmol/L (21-32) 02/15/19 06:48 Anion Gap 4 MMOL/L (8-16) L 02/15/19 06:48 BUN 33.7 mg/dL (7-18) H 02/15/19 06:48 Creatinine 1.9 mg/dL (0.55-1.3) H 02/15/19 06:48 Est GFR (CKD-EPI)AfAm 35.69 02/15/19 06:48 Est GFR (CKD-EPI)NonAf 30.79 02/15/19 06:48 POC Glucometer 80 UNITS (80-120) 02/13/19 09:45 Random Glucose 110 mg/dL (74-106) H 02/15/19 06:48 Lactic Acid 1.7 mmol/L (0.4-2.0) 02/13/19 10:00 Calcium 7.9 mg/dL (8.5-10.1) L 02/15/19 06:48 Phosphorus 3.1 mg/dL (2.5-4.9) 02/14/19 05:55 Magnesium 1.8 mg/dL (1.8-2.4) 02/14/19 05:55 Iron 46 ug/dL (50-175) L 02/15/19 06:48 TIBC 137 ug/dL (250-450) L 02/15/19 06:48 Iron Saturation 33 % (17.5-39) 02/15/19 06:48 Unsaturated IBC 91 ug/dL (200-275) L 02/15/19 06:48 Ferritin 201.6 ng/ml (8-388) 02/15/19 06:48 Total Bilirubin 0.3 mg/dL (0.2-1) 02/14/19 05:55 AST 34 U/L (15-37) 02/14/19 05:55 ALT 19 U/L (13-61) 02/14/19 05:55 Alkaline Phosphatase 43 U/L (45-117) L 02/14/19 05:55 Creatine Kinase 224 U/L (26-308) 02/15/19 06:48 Creatine Kinase Index 0.8 % (0.0-5.0) 02/15/19 06:48 CK-MB (CK-2) 2.0 ng/mL (0.5-3.6) 02/15/19 06:48 Troponin I 0.04 ng/ml (0.00-0.05) 02/15/19 06:48 Total Protein 5.0 g/dl (6.4-8.2) L 02/14/19 05:55 Albumin 2.2 g/dl (3.4-5.0) L 02/14/19 05:55 Vitamin B12 607 pg/ml (193-986) 02/14/19 05:55 Serum Folate 3 ng/mL (3.1-17.5) L 02/14/19 05:55 TSH 1.46 uIU/ml (0.358-3.74) 02/14/19 05:55 Active Medications Diltiazem HCl (Cardizem Cd -) 300 mg PO DAILY [facility] Last Admin: 02/15/19 09:09 Dose: 300 mg Doxazosin Mesylate (Cardura -) 4 mg PO DAILY [facility] Last Admin: 02/15/19 09:09 Dose: 4 mg Folic Acid (Folic Acid -) 1 mg PO DAILY [facility] Last Admin: 02/15/19 09:09 Dose: 1 mg Home Medications Medication Instructions Recorded Atorvastatin Ca [Lipitor] 10 mg PO DAILY 06/09/16 Diltiazem Cd [Cardizem Cd -] 300 mg PO DAILY 06/09/16 Doxazosin Mesylate [Cardura] 4 mg PO DAILY 06/09/16 Multivit-Min/Iron Fum/Folic AC 1 each PO DAILY 06/09/16 [Ctlis-Iruwqva-Hqunfcrw Tablet] Lubiprostone [Amitiza] 24 mcg PO ASDIR 02/13/19 Microbiology 02/13/19 13:15 Urine - Urine Toth Urine Culture - Final NO GROWTH OBTAINED ASSESSMENT/PLAN: 88 y/o M, pmh of HTN, HLD, mild dementia, and atrial fibrillation, presented s/ p Fall likely 2/2 to mechanical vs syncope #Fall 2/2 to mechanical vs syncope monitor on tele PT eval- 125 ft w/ minimal assistance PT tomorrow #Rhabdomyolysis CK 224, decreased from previous, improving Fluids d/marlon Echo shows mild concentric LVH, normal LV systolic function, LVEF 55-60%, normal RV, mild MR, mild TR, mild , trace AR, trivial pericardial effusion #BRUNILDA BUN/Cre- 33.7/1.9 - improved baseline creatinine not known (last available is 1.1 from 2017) #HTN ContCardizem CD #Hyperlipidemia Lipitor held secondary to rhabdomyolysis #Atrial fibrillation NSR Cont Cardizem CD #Dementia Folate decreased- start supplementation # Normocytic Anemia Likely secondary to chronic illness Dispo: monitor renal fxn, f/u PT Visit type - Emergency Visit Emergency Visit: Yes ED Registration Date: 02/13/19 Care time: The patient presented to the Emergency Department on the above date and was hospitalized for further evaluation of their emergent condition. - New Patient This patient is new to me today: Yes Date on this admission: 02/15/19 - Critical Care Critical Care patient: No - Discharge Referral Referred to [facility] Med P.C.: No ATTENDING PHYSICIAN STATEMENT I saw and evaluated the patient. I reviewed the resident's note and discussed the case with the resident. I agree with the resident's findings and plan as documented. SUBJECTIVE: OBJECTIVE: ASSESSMENT AND PLAN:
[2019-02-15 07:59] LABS: BLOOD UREA NITROGEN 33.7 mg/dL (7-18); CALCIUM 7.9 mg/dL (8.5-10.1); CREATININE 1.9 mg/dL (0.55-1.3); POTASSIUM 4.3 mmol/L (3.5-5.1)
[2019-02-15] MEDS ORDERED: PT OWN MED DRAWER 7, Y5N ONE (09:05)
[2019-02-15] MEDS: FOLIC ACID 1 MG TABLET (FP) PO SCH (09:09)
[2019-02-15] MEDS: DOXAZOSIN MESYLATE 4 MG TABLET PO SCH (09:09)
--- NOTE | 2019-02-15 11:15 | PN ---
Teaching Attending Note Name of Resident: Matty Mathias ATTENDING PHYSICIAN STATEMENT I saw and evaluated the patient. I reviewed the resident's note and discussed the case with the resident. I agree with the resident's findings and plan as documented. SUBJECTIVE: Patient has no complaints. He would like Toth removed. OBJECTIVE: Vital Signs Period Temp Pulse Resp BP Sys/Gallardo Pulse Ox Last 24 Hr 98.0 F-98.5 F 64-77 20-20 101-133/52-62 94-95 HEART: S1S2, RRR LUNGS: Clear ABDOMEN: Soft, non-tender, non-distended, normal BS EXTREMITIES: No edema Laboratory Results - last 24 hr 02/15/19 02/15/19 02/15/19 06:48 06:48 06:48 WBC 7.2 RBC 3.09 L Hgb 9.9 L Hct 29.0 L MCV 94.0 MCH 32.1 MCHC 34.1 RDW 14.9 Plt Count 201 MPV 7.6 Sodium 141 Potassium 4.3 Chloride 111 H Carbon Dioxide 26 Anion Gap 4 L BUN 33.7 H Creatinine 1.9 H Est GFR (CKD-EPI)AfAm 35.69 Est GFR (CKD-EPI)NonAf 30.79 Random Glucose 110 H Calcium 7.9 L Iron 46 L TIBC 137 L Iron Saturation 33 Unsaturated IBC 91 L Ferritin 201.6 Creatine Kinase 224 Creatine Kinase Index 0.8 CK-MB (CK-2) 2.0 Troponin I 0.04 Current Medications Generic Name Dose Route Start Last Admin Trade Name Freq PRN Reason Stop Dose Admin Diltiazem HCl 300 mg 02/14/19 10:00 02/15/19 09:09 Cardizem Cd - PO 300 mg DAILY [facility] Administration Doxazosin Mesylate 4 mg 02/14/19 10:00 02/15/19 09:09 Cardura - PO 4 mg DAILY [facility] Administration Folic Acid 1 mg 02/14/19 12:15 02/15/19 09:09 Folic Acid - PO 1 mg DAILY [facility] Administration ASSESSMENT AND PLAN: This is an 88 year old man with a history of HTN, atrial fib, hyperlipidemia, dementia who presented to the ED after a fall. 1. Rhabdomyolysis - Improved 2. s/p fall - Mechanical vs syncope - Continue telemetry monitoring - PT evaluation recommends inpatient PT to improve strength, balance, gait and functional endurance 3. Demand ischemia - Echo shows mild concentric LVH, normal LV systolic function, LVEF 55-60%, normal RV, mild MR, mild TR, mild , trace AR, trivial pericardial effusion 4. Acute kidney injury - No significant change in BUN, creatinine - ? stage 3 CKD - baseline creatinine not known (last available is 1.1 from 2017) - Remove Toth for voiding trial and monitor urine output, BUN, creatinine 5. HTN - Continue Cardizem CD 6. Hyperlipidemia - Resume Lipitor 7. Atrial fibrillation, paroxysmal - Currently in sinus rhythm - Continue Cardizem CD 8. Dementia 9. Anemia - Normocytic - Likely secondary to chronic illness - Iron, TIBC are low; iron saturation, ferritin are normal; folate is low - Continue to monitor hemoglobin - Continue folic acid 10. Folate deficiency - Continue folic acid supplementation
[2019-02-15] MEDS ORDERED: ATORVASTATIN CA 10 MG TABLET (FP) PO SCH (22:00)
[2019-02-16 06:29] LABS: BASO % 0.6 % (0-2.0); EOS % 5.3 % (0-4.5); HEMATOCRIT 27.9 % (35.4-49); HEMOGLOBIN 9.6 GM/dL (11.7-16.9); LYMPH % 13.4 % (8-40); MCH 31.9 pg (25.7-33.7); MCHC 34.3 g/dl (32.0-35.9); MEAN PLT VOLUME 7.4 fl (7.5-11.1); MONO % 7.5 % (3.8-10.2); NEUT % 73.2 % (42.8-82.8); PLATELET COUNT 187 K/MM3 (134-434); RDW 14.9 % (11.9-15.9); WHITE BLOOD COUNT 6.2 K/mm3 (4.0-10.0)
[2019-02-16 06:59] LABS: ALBUMIN 2.3 g/dl (3.4-5.0); BILIRUBIN,TOTAL 0.4 mg/dL (0.2-1); BLOOD UREA NITROGEN 29.6 mg/dL (7-18); CALCIUM 7.8 mg/dL (8.5-10.1); CREATININE 1.5 mg/dL (0.55-1.3); POTASSIUM 4.3 mmol/L (3.5-5.1); TOT PROT 5.2 g/dl (6.4-8.2)
[2019-02-16] MEDS ORDERED: PT OWN MED DRAWER 7, Y5N ONE ×2 (09:17→09:27)
[2019-02-16] MEDS: FOLIC ACID 1 MG TABLET (FP) PO SCH (09:21)
[2019-02-16] MEDS: DOXAZOSIN MESYLATE 4 MG TABLET PO SCH (09:21)
--- NOTE | 2019-02-16 09:24 | PN ---
Teaching Attending Note Name of Resident: Matty Mathias ATTENDING PHYSICIAN STATEMENT I saw and evaluated the patient. I reviewed the resident's note and discussed the case with the resident. I agree with the resident's findings and plan as documented. SUBJECTIVE: Patient is a 88yo Syriac and Filipino speaking male with PMhx of HTN, HLD, mild dementia, and atrial fibrillation who presents to Ed. after unwitnessed mechanical fall. Patient is feeling better no acute distress. OBJECTIVE: Vital Signs Temperature 98.2 F 02/16/19 06:00 Pulse Rate 72 02/16/19 06:00 Respiratory Rate 20 02/16/19 06:00 Blood Pressure 141/72 02/16/19 06:00 O2 Sat by Pulse Oximetry (%) 90 L 02/15/19 21:00 GENERAL: The patient is HARD of hearing, demented, in no acute distress. HEAD: Normal with no signs of trauma. EYES: PERRL, extraocular movements intact, sclera anicteric, conjunctiva clear. ENT: Ears normal, oropharynx clear without exudates, moist mucous membranes. NECK: Trachea midline, full range of motion, supple. LUNGS: Breath sounds equal, clear to auscultation bilaterally, no wheezes, no crackles, no accessory muscle use. HEART: Regular rate and rhythm, S1, S2 positive, JERICHO 3/6 murmur, no rub or gallop. ABDOMEN: Soft, nontender, nondistended, normoactive bowel sounds, no guarding, no rebound, no hepatosplenomegaly, no masses. EXTREMITIES: 2+ pulses, warm, well-perfused, no edema. NEUROLOGICAL: Cranial nerves II through XII grossly intact. unable to assess further since patient has dementia . SKIN: Warm, dry, normal turgor, no rashes or lesions noted CBCD WBC 6.2 K/mm3 (4.0-10.0) 02/16/19 05:32 RBC 3.00 M/mm3 (4.00-5.60) L 02/16/19 05:32 Hgb 9.6 GM/dL (11.7-16.9) L 02/16/19 05:32 Hct 27.9 % (35.4-49) L 02/16/19 05:32 MCV 93.0 fl (80-96) 02/16/19 05:32 MCHC 34.3 g/dl (32.0-35.9) 02/16/19 05:32 RDW 14.9 % (11.9-15.9) 02/16/19 05:32 Plt Count 187 K/MM3 (134-434) 02/16/19 05:32 MPV 7.4 fl (7.5-11.1) L 02/16/19 05:32 CMP Sodium 141 mmol/L (136-145) 02/16/19 05:32 Potassium 4.3 mmol/L (3.5-5.1) 02/16/19 05:32 Chloride 110 mmol/L (98-107) H 02/16/19 05:32 Carbon Dioxide 26 mmol/L (21-32) 02/16/19 05:32 Anion Gap 4 MMOL/L (8-16) L 02/16/19 05:32 BUN 29.6 mg/dL (7-18) H 02/16/19 05:32 Creatinine 1.5 mg/dL (0.55-1.3) H 02/16/19 05:32 Random Glucose 87 mg/dL (74-106) 02/16/19 05:32 Calcium 7.8 mg/dL (8.5-10.1) L 02/16/19 05:32 Total Bilirubin 0.4 mg/dL (0.2-1) 02/16/19 05:32 AST 21 U/L (15-37) 02/16/19 05:32 ALT 18 U/L (13-61) 02/16/19 05:32 Alkaline Phosphatase 39 U/L (45-117) L 02/16/19 05:32 Total Protein 5.2 g/dl (6.4-8.2) L 02/16/19 05:32 Albumin 2.3 g/dl (3.4-5.0) L 02/16/19 05:32 CARDIAC ENZYMES Creatine Kinase 224 U/L (26-308) 02/15/19 06:48 Troponin I 0.04 ng/ml (0.00-0.05) 02/15/19 06:48 Current Medications Generic Name Dose Route Start Last Admin Trade Name Freq PRN Reason Stop Dose Admin Atorvastatin Calcium 10 mg 02/15/19 22:00 02/15/19 21:57 Lipitor - PO 10 mg HS [facility] Administration Diltiazem HCl 300 mg 02/14/19 10:00 02/16/19 09:21 Cardizem Cd - PO 300 mg DAILY [facility] Administration Doxazosin Mesylate 4 mg 02/14/19 10:00 02/16/19 09:21 Cardura - PO 4 mg DAILY [facility] Administration Folic Acid 1 mg 02/14/19 12:15 02/16/19 09:21 Folic Acid - PO 1 mg DAILY [facility] Administration Home Medications Medication Instructions Recorded Atorvastatin Ca [Lipitor] 10 mg PO DAILY 06/09/16 Diltiazem Cd [Cardizem Cd -] 300 mg PO DAILY 06/09/16 Doxazosin Mesylate [Cardura] 4 mg PO DAILY 06/09/16 Multivit-Min/Iron Fum/Folic AC 1 each PO DAILY 06/09/16 [Jelmo-Hmquona-Uscqwtlo Tablet] Lubiprostone [Amitiza] 24 mcg PO ASDIR 02/13/19 Laboratory Tests 02/14/19 02/14/19 02/15/19 05:55 05:55 06:48 Iron 46 L TIBC 137 L Iron Saturation 33 Unsaturated IBC 91 L Ferritin 201.6 Vitamin B12 607 Serum Folate 3 L Current Medications Generic Name Dose Route Start Last Admin Trade Name Freq PRN Reason Stop Dose Admin Atorvastatin Calcium 10 mg 02/15/19 22:00 02/15/19 21:57 Lipitor - PO 10 mg HS [facility] Administration Diltiazem HCl 300 mg 02/14/19 10:00 02/16/19 09:21 Cardizem Cd - PO 300 mg DAILY [facility] Administration Doxazosin Mesylate 4 mg 02/14/19 10:00 02/16/19 09:21 Cardura - PO 4 mg DAILY [facility] Administration Folic Acid 1 mg 02/14/19 12:15 02/16/19 09:21 Folic Acid - PO 1 mg DAILY [facility] Administration Home Medications Medication Instructions Recorded RX: Atorvastatin Ca [Lipitor] 10 mg PO DAILY 06/09/16 RX: Diltiazem Cd [Cardizem Cd -] 300 mg PO DAILY 06/09/16 RX: Doxazosin Mesylate [Cardura] 4 mg PO DAILY 06/09/16 RX: Folic Acid - 1 mg PO DAILY #30 tablet 02/16/19 ASSESSMENT AND PLAN: Patient is a 88yo Syriac and Filipino speaking male with PMhx of HTN, HLD, dementia, and atrial fibrillation who presents to Ed. after unwitnessed mechanical fall. # s/p Unwitnessed fall: possible due to Cardura ; syncope vs arrythmia , admit in tele, cardio consult, echo, cardio consult , check orthostatic #P-Afib: on cardizam CD continue , trops. trend #Acute Rhabdomyolysis: IVF, CPK level 11K, improved #Acute kidney injury cr 1.7-->1.5K improving #Hx of HTN: continue home meds # Hx of HLD: hold lipitor for now since patient is in acute rhabdo, will continue Lipitor since rhabdo resolved #Dementia: b12, TSh level nl, folic acid is low #Folic acid deficiency continue Folic acid 1mg daily. DVT Px: - SCds PT evaluation recommends inpatient PT to improve strength, balance, gait and functional endurance Daughter (Juanjo) was called discharge patient
--- NOTE | 2019-02-16 11:48 | DS ---
Physical Exam: SUBJECTIVE: Patient seen and examined OBJECTIVE: Vital Signs Period Temp Pulse Resp BP Sys/Gallardo Pulse Ox Last 24 Hr 97.8 F-98.4 F 63-74 18-20 110-141/53-72 90-96 PHYSICAL EXAM GENERAL: The patient is awake, alert, and fully oriented, in no acute distress. EYES: PERRL, extraocular movements intact ENT: oropharynx clear without exudates, moist mucous membranes. NECK: full range of motion, supple. LUNGS: Breath sounds equal, clear to auscultation bilaterally, no wheezes, no crackles HEART: Regular rate and rhythm, S1, S2 without murmur, rub or gallop. ABDOMEN: Soft, nontender, nondistended, normoactive bowel sounds, no guarding EXTREMITIES: 2+ pulses, warm PSYCH: Normal mood, normal affect. LABS WBC 6.2 K/mm3 (4.0-10.0) 02/16/19 05:32 RBC 3.00 M/mm3 (4.00-5.60) L 02/16/19 05:32 Hgb 9.6 GM/dL (11.7-16.9) L 02/16/19 05:32 Hct 27.9 % (35.4-49) L 02/16/19 05:32 MCV 93.0 fl (80-96) 02/16/19 05:32 MCH 31.9 pg (25.7-33.7) 02/16/19 05:32 MCHC 34.3 g/dl (32.0-35.9) 02/16/19 05:32 RDW 14.9 % (11.9-15.9) 02/16/19 05:32 Plt Count 187 K/MM3 (134-434) 02/16/19 05:32 MPV 7.4 fl (7.5-11.1) L 02/16/19 05:32 Absolute Neuts (auto) 4.6 K/mm3 (1.5-8.0) 02/16/19 05:32 Neutrophils % 73.2 % (42.8-82.8) 02/16/19 05:32 Lymphocytes % 13.4 % (8-40) D 02/16/19 05:32 Monocytes % 7.5 % (3.8-10.2) 02/16/19 05:32 Eosinophils % 5.3 % (0-4.5) H 02/16/19 05:32 Basophils % 0.6 % (0-2.0) 02/16/19 05:32 Nucleated RBC % 0 % (0-0) 02/16/19 05:32 Sodium 141 mmol/L (136-145) 02/16/19 05:32 Potassium 4.3 mmol/L (3.5-5.1) 02/16/19 05:32 Chloride 110 mmol/L (98-107) H 02/16/19 05:32 Carbon Dioxide 26 mmol/L (21-32) 02/16/19 05:32 Anion Gap 4 MMOL/L (8-16) L 02/16/19 05:32 BUN 29.6 mg/dL (7-18) H 02/16/19 05:32 Creatinine 1.5 mg/dL (0.55-1.3) H 02/16/19 05:32 Est GFR (CKD-EPI)AfAm 47.49 02/16/19 05:32 Est GFR (CKD-EPI)NonAf 40.98 02/16/19 05:32 POC Glucometer 80 UNITS (80-120) 02/13/19 09:45 Random Glucose 87 mg/dL (74-106) 02/16/19 05:32 Lactic Acid 1.7 mmol/L (0.4-2.0) 02/13/19 10:00 Calcium 7.8 mg/dL (8.5-10.1) L 02/16/19 05:32 Phosphorus 3.1 mg/dL (2.5-4.9) 02/14/19 05:55 Magnesium 1.8 mg/dL (1.8-2.4) 02/14/19 05:55 Iron 46 ug/dL (50-175) L 02/15/19 06:48 TIBC 137 ug/dL (250-450) L 02/15/19 06:48 Iron Saturation 33 % (17.5-39) 02/15/19 06:48 Unsaturated IBC 91 ug/dL (200-275) L 02/15/19 06:48 Ferritin 201.6 ng/ml (8-388) 02/15/19 06:48 Total Bilirubin 0.4 mg/dL (0.2-1) 02/16/19 05:32 AST 21 U/L (15-37) 02/16/19 05:32 ALT 18 U/L (13-61) 02/16/19 05:32 Alkaline Phosphatase 39 U/L (45-117) L 02/16/19 05:32 Creatine Kinase 224 U/L (26-308) 02/15/19 06:48 Creatine Kinase Index 0.8 % (0.0-5.0) 02/15/19 06:48 CK-MB (CK-2) 2.0 ng/mL (0.5-3.6) 02/15/19 06:48 Troponin I 0.04 ng/ml (0.00-0.05) 02/15/19 06:48 Total Protein 5.2 g/dl (6.4-8.2) L 02/16/19 05:32 Albumin 2.3 g/dl (3.4-5.0) L 02/16/19 05:32 Vitamin B12 607 pg/ml (193-986) 02/14/19 05:55 Serum Folate 3 ng/mL (3.1-17.5) L 02/14/19 05:55 TSH 1.46 uIU/ml (0.358-3.74) 02/14/19 05:55 Current Medications Atorvastatin Calcium (Lipitor -) 10 mg PO HS [facility] Last Admin: 02/15/19 21:57 Dose: 10 mg Diltiazem HCl (Cardizem Cd -) 300 mg PO DAILY [facility] Last Admin: 02/16/19 09:21 Dose: 300 mg Doxazosin Mesylate (Cardura -) 4 mg PO DAILY [facility] Last Admin: 02/16/19 09:21 Dose: 4 mg Folic Acid (Folic Acid -) 1 mg PO DAILY [facility] Last Admin: 02/16/19 09:21 Dose: 1 mg Home Medications Medication Instructions Recorded Atorvastatin Ca [Lipitor] 10 mg PO DAILY 06/09/16 Diltiazem Cd [Cardizem Cd -] 300 mg PO DAILY 06/09/16 Doxazosin Mesylate [Cardura] 4 mg PO DAILY 06/09/16 Multivit-Min/Iron Fum/Folic AC 1 each PO DAILY 06/09/16 [Mpfxc-Hplxyky-Rqibpxbc Tablet] Lubiprostone [Amitiza] 24 mcg PO ASDIR 02/13/19 Microbiology 02/13/19 13:15 Urine - Urine Toth Urine Culture - Final NO GROWTH OBTAINED HOSPITAL COURSE: Date of Admission:02/13/19 88 y/o M, pmh of HTN, HLD, mild dementia, and atrial fibrillation, presented s/ p Fall likely 2/2 to mechanical vs syncope. Pt was worked up for fractures with CT of the hip which found a mild b/l vertical sacral alae fx, but conservatively treated. Pt was also found to have a abnormally elevated CK levels which normalized within 2 days. Pt was also found to have BRUNILDA which was resolved after fluids and monitoring. Pt was discharged home on his home meds. CT hip: b/l vertical sacral alae fx, no other acute findings CXR- neg Echo shows mild concentric LVH, normal LV systolic function, LVEF 55-60%, normal RV, mild MR, mild TR, mild , trace AR, trivial pericardial effusion #Fall 2/2 to mechanical vs syncope monitor on tele PT eval- 125 ft w/ minimal assistance #Rhabdomyolysis CK 224, decreased from previous, improving Fluids d/marlon #BRUNILDA BUN/Cre- 33.7/1.9 - improved baseline creatinine not known (last available is 1.1 from 2017) Date of Discharge: 02/16/19 Minutes to complete discharge: 35 Discharge Summary Problems reviewed: Yes Reason For Visit: ACUTE KIDNEY INJURY Condition: Improved - Instructions Diet, Activity, Other Instructions: You were admitted to the hospital for a fall. While you were in the hospital, we evaluated you with lab works, blood works, imaging including CAT scan of your head, your legs and x rays of your chest. We found that you had an abnormal kidney function, for which we started treatment with medications and monitored you. After treatment, your kidney functions were back to normal. Please make sure that when you wake up from sleep in the morning, you slowly get out of bed. When you wake up, please take a moment and sit before you stand. If you experience dizziness when you get out of bed, sit and rest a moment, and call for help if needed. Please take all your medications as prescribed Please Follow up with your primary care physician in 1 week Return to the emergency room, if you experience any worsening of your symptoms, chest pain, headaches, shortness of breath, nausea, vomiting and any other symptoms. Referrals: Elder Santana MD [Staff Physician] - 1 Week Henri Sorto MD [Staff Physician] - 1 Week Lorna Palacios MD [Staff Physician] - 2 Weeks Disposition: VNS/HOME HEALTH CARE - Home Medications Comprehensive Discharge Medication List: Ambulatory Orders Atorvastatin Ca [Lipitor] 10 mg PO DAILY 06/09/16 Diltiazem Cd [Cardizem Cd -] 300 mg PO DAILY 06/09/16 Doxazosin Mesylate [Cardura] 4 mg PO DAILY 06/09/16 Multivit-Min/Iron Fum/Folic AC [Rqrtg-Tvibfyp-Jvdhrwal Tablet] 1 each PO DAILY 06/09/16 Lubiprostone [Amitiza] 24 mcg PO ASDIR 02/13/19 This patient is new to me today: Yes Date on this admission: 02/17/19 Emergency Visit: Yes ED Registration Date: 02/13/19 Care time: The patient presented to the Emergency Department on the above date and was hospitalized for further evaluation of their emergent condition. Critical Care patient: No - Discharge Referral Referred to [facility] Med P.C.: No ATTENDING PHYSICIAN STATEMENT I saw and evaluated the patient. I reviewed the resident's note and discussed the case with the resident. I agree with the resident's findings and plan as documented. SUBJECTIVE: OBJECTIVE: ASSESSMENT AND PLAN:
[2019-02-16 18:55] VITALS: BP 100/48; PULSE 63; TEMP 97.9
[2019-03-14] MEDS ORDERED: HEPARIN NA (PORCINE) 5,000 UNITS/ML 1ML VIAL SQ SCH (10:00)
== END 2019-02-16 21:00 | disposition home health service (06) | DRG 964 ==
LOC: JER 08:58 → JERBED 11:29 → J4W 15:45
PROVIDERS: ADMIT Internal Medicine; ATTEND Internal Medicine
DX: T79.6XXA Traumatic ischemia of muscle, initial encounter (principal); S32.110A Nondisplaced Zone I fracture of sacrum, initial encounter for closed fracture; N17.9 Acute kidney failure, unspecified; I24.8 Other forms of acute ischemic heart disease; I48.0 Paroxysmal atrial fibrillation; F03.90 Unspecified dementia, unspecified severity, without behavioral disturbance, psychotic disturbance, mood disturbance, and anxiety; D64.9 Anemia, unspecified; I10 Essential (primary) hypertension; T44.6X5A Adverse effect of alpha-adrenoreceptor antagonists, initial encounter; E78.5 Hyperlipidemia, unspecified; W19.XXXA Unspecified fall, initial encounter; Y93.9 Activity, unspecified; Y92.89 Other specified places as the place of occurrence of the external cause
CPT/HCPCS: 36415; 70450-TC; 70486-TC; 71046-TC-FY; 72125-TC; 72170-TC-FY; 72192-TC; 73700-TC-RT; 76775-TC; 80048; 80053; 81003; 82550; 82553; 82607; 82728; 82746; 82962; 83540; 83550; 83605; 83735; 84100; 84443; 84484; 85025; 85027; 85610; 87086; 93005; 93010; 93306-TC; 97116-GP; 97161-GP; 99285-25; G0008; J0131; Q2036

== ENCOUNTER 2019-03-13 08:52 | Inpatient (IN) | payer OTHER ==
--- NOTE | 2019-03-13 09:16 | PDOC ---
Attending Attestation - Resident Resident Name: Torsten Francisco - ED Attending Attestation I have performed the following: I have examined & evaluated the patient, The case was reviewed & discussed with the resident, I agree w/resident's findings & plan, Exceptions are as noted - HPI HPI: 03/13/19 09:16 Mr. Wang is an 88 yo M who presents to the ER via EMS s/p fall He has a h/o HTN, HLD, mild dementia, and atrial fibrillation He is s/p a recent admission in February due to a fall. During that admission, he was found to have b/l vertical sacral alae fx (managed conservatively), rhabdomyolysis and BRUNILDA (which resolved). Pt states that he was exiting the bathroom, slipped and fell No head trauma, no LOC Unclear when this happened exactly Pt was found this morning by EKG TECH who called EMS Pt denies pain at this time with the exception of the foot that has a laceration - Physicial Exam PE: 03/13/19 09:16 GENERAL: The patient is in no acute distress, hard of hearing, A&O x 2. ENT: Ears normal, nares patent, oropharynx clear without exudates. Moist mucous membranes. NECK: Normal range of motion, supple, no midline tenderness LUNGS: Breath sounds equal, clear to auscultation bilaterally. No wheezes, and no crackles. HEART:Regular rate and rhythm, normal S1 and S2 without murmur, rub or gallop. ABDOMEN: Soft, nontender, normoactive bowel sounds. EXTREMITIES: Normal range of motion, 1+ edema b/l lower extremities ROM nml at bilateral hips, knees, ankles NEUROLOGICAL: Cranial nerves II through XII grossly intact. Normal speech. No focal neurological deficits. SKIN: Right foot laceration noted on the dorsum of the foot, near the great toe , approximately 3 inches No active bleeding DP 2+ 03/13/19 09:45 - Medical Decision Making 03/13/19 09:47 88 yo M presenting to the ER s/p fall Pt with protracted period on the ground, unclear how long Local pain at the site of laceration Will do: Labs CT head and C spine CXR Hip X ray Foot xay Boostrix Suture repair 03/13/19 11:49 Laboratory Tests 03/13/19 03/13/19 03/13/19 10:20 10:20 10:20 WBC 7.6 Hgb 10.7 L Hct 31.9 L Plt Count 238 D INR 1.15 H BUN 23.1 H Creatinine 1.1 Creatine Kinase 649 H Creatine Kinase Index 1.7 CK-MB (CK-2) 11.4 H Troponin I 0.32 H 03/13/19 11:49 CXR: no acute pathology 03/13/19 12:00 EKG: NSR rate of 76 bpm, aix nml, no st elevation or depression, intervals abn - QTc : 542ms, LVH (t waves inverted v2-v5) CT head: No intracranial hemorrhage, edema, midline shift, mass effect, or skull fracture, no ischemic changes CT c spine: No acute bony abnormalities seen, facet arthropathy Of note: I received a call from Adult protective services I explained to the person who called, that this patient was being admitted to the hospital and will be on the hospitalist's service Pt stable in the ER Clinical impression: Fall from standing, initial presentation Laceration of foot, initial presentation Elevated troponin level, initial presentation
[2019-03-13] MEDS ORDERED: DIPHTH,PERTUSS(ACELL),TET 0.5 ML DISP.SYRIN IM ONE ×2 (09:36→10:08)
[2019-03-13 10:06] VITALS: BMI 18.3
--- NOTE | 2019-03-13 10:10 | PDOC ---
History of Present Illness - General Chief Complaint: Injury Stated Complaint: FALL Time Seen by Provider: 03/13/19 09:08 History Source: Patient Exam Limitations: No Limitations - History of Present Illness Initial Comments: 03/13/19 10:42 88 yo male HTN, HLD, dementia presents to the ED after a fall (on ASA, no AC). Pt home health aide is present who calls pts daughter and provides HPI. Pt reported to be coming out of the shower while home alone last night, slipped and fell. Pt found on the ground with a Lac to the R dorsal foot, no active bleeding. Pt at baseline has dementia AOX2-AOX3 at times, currently AOX2 and daughter states he is at baseline. Pt denies JEAN, LOC, hitting his head, changes in vision, weakness on 1 side of his body, CP/palpitation/SOB prior to or after the fall. Denies changes in bowel or bladder habits, F/C/N/V, recent illness. Pt has 3 days per week of home health aide, otherwise lives alone. Pt had recent fall and admission. Past History - Past Medical History Allergies/Adverse Reactions: Allergies Allergy/AdvReac Type Severity Reaction Status Date / Time No Known Allergies Allergy Verified 02/13/19 09:45 Home Medications: Ambulatory Orders Atorvastatin Ca [Lipitor] 10 mg PO DAILY 06/09/16 Diltiazem Cd [Cardizem Cd -] 300 mg PO DAILY 06/09/16 Doxazosin Mesylate [Cardura] 4 mg PO DAILY 06/09/16 Folic Acid - 1 mg PO DAILY #30 tablet 02/16/19 COPD: No Dementia: Yes Disorders: Yes (BPH) HTN: Yes Hypercholesterolemia: Yes - Surgical History GI Surgery: Yes (Gallstone) - Psycho Social/Smoking Cessation Hx Smoking History: Never smoked Have you smoked in the past 12 months: No Information on smoking cessation initiated: No Hx Alcohol Use: No Drug/Substance Use Hx: No Substance Use Type: None *Physical Exam - Vital Signs Last Vital Signs Temp Pulse Resp BP Pulse Ox 98.2 F 75 14 131/78 100 03/13/19 09:57 03/13/19 09:57 03/13/19 09:57 03/13/19 09:57 03/13/19 09:57 ED Treatment Course - LABORATORY CBC & Chemistry Diagram: 03/13/19 10:20 03/13/19 10:20 - RADIOLOGY Radiology Studies Ordered: Category Date Time Status CERVICAL SPINE CT W/O CONTR [CT] Stat CT Scan 03/13/19 09:[address] WITHOUT CONTRAST [CT] Stat CT Scan 03/13/19 09:39 Ordered CHEST X-RAY PORTABLE* [RAD] Stat Radiology 03/13/19 09:39 Ordered FOOT-LEFT [RAD] Stat Radiology 03/13/19 09:47 Ordered Medical Decision Making - Medical Decision Making 03/13/19 11:46 88 yo male HTN, HLD, dementia presents to the ED after a fall (on ASA, no AC). Pt home health aide is present who calls pts daughter and provides HPI. Pt reported to be coming out of the shower while home alone last night, slipped and fell. Pt found on the ground with a Lac to the R dorsal foot, no active bleeding. Pt at baseline has dementia AOX2-AOX3 at times, currently AOX2 and daughter states he is at baseline. Pt denies JEAN, LOC, hitting his head, changes in vision, weakness on 1 side of his body, CP/palpitation/SOB prior to or after the fall. Denies changes in bowel or bladder habits, F/C/N/V, recent illness. Pt has 3 days per week of home health aide, otherwise lives alone. Pt had recent fall and admission. vitals WNL Pt only complaint is pain to the foot where his laceration is 03/13/19 12:[address] Rossi, states he will reassess pt in the hospital 02/[address] Sorto after fall with trop .15 and elevated CK, diagnosed demand ischemia and rhabdo 12 Discharge - Discharge Information Problems reviewed: Yes Clinical Impression/Diagnosis: Failure to thrive, Elevated troponin, Rhabdomyolysis - Admission Yes - Follow up/Referral - Patient Discharge Instructions - Post Discharge Activity
[2019-03-13 10:43] LABS: BASO % 0.5 % (0-2.0); EOS % 0.7 % (0-4.5); HEMATOCRIT 31.9 % (35.4-49); HEMOGLOBIN 10.7 GM/dL (11.7-16.9); LYMPH % 11.6 % (8-40); MCH 31.5 pg (25.7-33.7); MCHC 33.5 g/dl (32.0-35.9); MEAN PLT VOLUME 7.6 fl (7.5-11.1); MONO % 7.9 % (3.8-10.2); NEUT % 79.3 % (42.8-82.8); PLATELET COUNT 238 K/MM3 (134-434); RBC 3.39 M/mm3 (4.00-5.60); RDW 14.6 % (11.9-15.9); WHITE BLOOD COUNT 7.6 K/mm3 (4.0-10.0)
[2019-03-13 11:17] LABS: INR 1.15 (0.83-1.09); PROTHROMBIN TIME (PATIENT) 13.6 SEC (9.7-13.0)
[2019-03-13 11:20] LABS: ALBUMIN 2.8 g/dl (3.4-5.0); BILIRUBIN,TOTAL 0.9 mg/dL (0.2-1); BLOOD UREA NITROGEN 23.1 mg/dL (7-18); CALCIUM 8.7 mg/dL (8.5-10.1); CREATININE 1.1 mg/dL (0.55-1.3); POTASSIUM 4.4 mmol/L (3.5-5.1); TOT PROT 6.6 g/dl (6.4-8.2)
[2019-03-13 12:15] LABS: PH,URINE 6.5 (5.0-8.0); URINE APPEARANCE CLEAR; URINE BILIRUBIN NEGATIVE (NEGATIVE); URINE COLOR YELLOW; URINE GLUCOSE (UA) NEGATIVE (NEGATIVE); URINE KETONE NEGATIVE (NEGATIVE); URINE LEUK ESTERASE NEGATIVE (NEGATIVE); URINE NITRITE POSITIVE (NEGATIVE); URINE PROTEIN NEGATIVE (NEGATIVE); URINE UROBILINOGEN 0.2 mg/dL (0.2-1.0)
[2019-03-13 12:28] LABS: URINE RBC 0-4 /hpf (0-4); URINE WBC 0-5 /hpf (0-5)
[2019-03-13 12:29] LABS: EPI CELLS 0-5 /HPF (0-5/HPF); HYALINE CASTS 0-8 /lpf (0-8); URINE BACTERIA POSITIVE /hpf (NEGATIVE)
[2019-03-13] MEDS ORDERED: SODIUM CHLORIDE 1,000 ML IV STA (13:00)
--- NOTE | 2019-03-13 15:12 | CON.CARD ---
Consult Consult Specialty:: Cardiology Reason for Consultation:: Elevated TP - History of Present Illness History of Present Illness: 88 yo M HTN, HLD, dementia presents to the ED after a fall. History is limited from the patient. Reportedly had no LOC but slipped after leaving the shower and fell. Had a Lac to the R dorsal foot. Pt denies JEAN, LOC, CP/palpitation/ SOB prior to or after the fall. He lives alone. Cardiology was consulted after an elevated TP was seen. ECG shows diffuse T wave abnormality in the anterior leads-not different from prior. A recent ehocardiogram showed normal biventricular function without valvular pathology. - History Source History Provided By: Medical Record - Alcohol/Substance Use Hx Alcohol Use: No - Smoking History Smoking history: Never smoked Have you smoked in the past 12 months: No Home Medications - Allergies Allergies/Adverse Reactions: Allergies Allergy/AdvReac Type Severity Reaction Status Date / Time No Known Allergies Allergy Verified 02/13/19 09:45 - Home Medications Home Medications: Ambulatory Orders Atorvastatin Ca [Lipitor] 10 mg PO DAILY 06/09/16 Diltiazem Cd [Cardizem Cd -] 300 mg PO DAILY 06/09/16 Doxazosin Mesylate [Cardura] 4 mg PO DAILY 06/09/16 Folic Acid - 1 mg PO DAILY #30 tablet 02/16/19 Review of Systems Unable to obtain ROS, reason: Dementia Vital Signs: Vital Signs Temperature 98.2 F 03/13/19 09:57 Pulse Rate 75 03/13/19 09:57 Respiratory Rate 14 03/13/19 09:57 Blood Pressure 131/78 03/13/19 09:57 O2 Sat by Pulse Oximetry (%) 100 03/13/19 09:57 Constitutional: Yes: Well Nourished, No Distress, Thin Eyes: Yes: Conjunctiva Clear, EOM Intact HENT: Yes: Atraumatic, Normocephalic Neck: Yes: Supple, Trachea Midline Respiratory: Yes: Regular, CTA Bilaterally Gastrointestinal: Yes: Normal Bowel Sounds, Soft Cardiovascular: Yes: Regular Rate and Rhythm JVD: No PMI: Non-Displaced Heart Sounds: Yes: S1, S2 Murmur: No: Systolic Murmur, Diastolic Murmur Edema: No - Other Data Labs, Other Data: CBC, BMP 03/13/19 10:20 03/13/19 10:20 INR, PTT INR 1.15 (0.83-1.09) H 03/13/19 10:20 Troponin, BNP 03/13/19 03/13/19 10:20 13:31 Troponin I 0.32 H 0.32 H Troponin, BNP 03/13/19 03/13/19 10:20 13:31 Troponin I 0.32 H 0.32 H NSR with deep T wave abnormality in the anterior leads. Unchanged from 02/2019 Problem List - Problems (1) Elevated troponin Code(s): R79.89 - OTHER SPECIFIED ABNORMAL FINDINGS OF BLOOD CHEMISTRY Assessment/Plan Elderly man with recurrent falls and ho dementia. Admitted after a fall which was due to loss of balance. He is found to have chronicly elevated TP and a recent cardiac eval showing normal LV function. Given lack of dynamic ECG changes and no ischemic symptoms, conservative therapy is reasonable. Suspect demand mediated ischemia. Can continue with ASA in a few days if no bleeding from laceration. Statin therapy is reasonable. Will see as needed.
--- NOTE | 2019-03-13 17:24 | HP ---
CHIEF COMPLAINT: fall at home, weakness PCP: Dr. Lonnie Whatley HISTORY OF PRESENT ILLNESS: Patient is an 88 year old male who (speaks primarily Latvian) presents to the ED today after an unwitnessed fall at home. Patient lives alone and has an aide that comes in three times per week. Aide found patient collapsed on the floor today of unknown amount of time. Aide was not in the ED during interview, however, patient's daughter was present and reports that patient has been having frequent falls at home. Last week she noted that his left left was edematous and red with some drainage (provided me with pictures from her phone) , since then, she states he has been weaker. However, she is not in close touch with her father and did not have any significant medical information further to provide. On exam patient is awake and alert and in no acute distress, eating his dinner, facial symmetry. After fall today he sustained injury/laceration to his right dorsal foot and is s/p suturing in the ED. Patient denies JEAN, LOC, hitting his head, changes in vision, weakness or chest pain. Patient had a recent admission in February 2019 at [facility] with similar presentation. ER course was notable for: (1) rhabdo 694 (2) trops 0.32, 0.32 (3) Recent Travel: none PAST MEDICAL HISTORY: hypertension, falls, syncope PAST SURGICAL HISTORY: Social History: Smoking: n/a Alcohol:n/a Drugs: n/a Allergies No Known Allergies Allergy (Verified 02/13/19 09:45) HOME MEDICATIONS: Home Medications Medication Instructions Recorded Atorvastatin Ca [Lipitor] 10 mg PO DAILY 06/09/16 Diltiazem Cd [Cardizem Cd -] 300 mg PO DAILY 06/09/16 Doxazosin Mesylate [Cardura] 4 mg PO DAILY 06/09/16 Folic Acid - 1 mg PO DAILY #30 tablet 02/16/19 PHYSICAL EXAMINATION GENERAL: The patient is in no acute distress, hard of hearing, A&O x 2. ENT: Ears normal, nares patent, oropharynx clear without exudates. Moist mucous membranes. NECK: Normal range of motion, supple, no midline tenderness LUNGS: Breath sounds equal, clear to auscultation bilaterally. No wheezes, and no crackles. HEART:Regular rate and rhythm, normal S1 and S2 without murmur, rub or gallop. ABDOMEN: Soft, nontender, normoactive bowel sounds. EXTREMITIES: Normal range of motion, 1+ edema b/l lower extremities NEUROLOGICAL: facial symmetry, Normal speech. No focal neurological deficits. SKIN: Right foot laceration noted on the dorsum of the foot, near the great toe , approximately 3 inches, sutured. no active bleeding. Vital Signs - 24 hr 03/13/19 09:57 Temperature 98.2 F Pulse Rate 75 Respiratory 14 Rate Blood Pressure 131/78 O2 Sat by Pulse 100 Oximetry (%) Laboratory Results - last 24 hr 03/13/19 03/13/19 03/13/19 10:20 10:20 10:20 WBC 7.6 RBC 3.39 L Hgb 10.7 L Hct 31.9 L MCV 94.0 MCH 31.5 MCHC 33.5 RDW 14.6 Plt Count 238 D MPV 7.6 Absolute Neuts (auto) 6.0 Neutrophils % 79.3 Lymphocytes % 11.6 Monocytes % 7.9 Eosinophils % 0.7 D Basophils % 0.5 Nucleated RBC % 0 PT with INR 13.60 H INR 1.15 H Sodium 139 Potassium 4.4 Chloride 106 Carbon Dioxide 24 Anion Gap 8 BUN 23.1 H Creatinine 1.1 Est GFR (CKD-EPI)AfAm 69.10 Est GFR (CKD-EPI)NonAf 59.62 Random Glucose 90 Calcium 8.7 Magnesium 2.0 Total Bilirubin 0.9 AST 47 H ALT 32 Alkaline Phosphatase 62 Creatine Kinase 649 H Creatine Kinase Index 1.7 CK-MB (CK-2) 11.4 H Troponin I 0.32 H Total Protein 6.6 Albumin 2.8 L Urine Color Urine Appearance Urine pH Ur Specific Garvin Urine Protein Urine Glucose (UA) Urine Ketones Urine Blood Urine Nitrite Urine Bilirubin Urine Urobilinogen Ur Leukocyte Esterase Urine WBC (Auto) Urine RBC (Auto) Urine Casts (Auto) U Epithel Cells (Auto) Urine Bacteria (Auto) 03/13/19 03/13/19 11:45 13:31 WBC RBC Hgb Hct MCV MCH MCHC RDW Plt Count MPV Absolute Neuts (auto) Neutrophils % Lymphocytes % Monocytes % Eosinophils % Basophils % Nucleated RBC % PT with INR INR Sodium Potassium Chloride Carbon Dioxide Anion Gap BUN Creatinine Est GFR (CKD-EPI)AfAm Est GFR (CKD-EPI)NonAf Random Glucose Calcium Magnesium Total Bilirubin AST ALT Alkaline Phosphatase Creatine Kinase Creatine Kinase Index CK-MB (CK-2) Troponin I 0.32 H Total Protein Albumin Urine Color Yellow Urine Appearance Clear Urine pH 6.5 D Ur Specific Garvin 1.015 Urine Protein Negative Urine Glucose (UA) Negative Urine Ketones Negative Urine Blood Trace Urine Nitrite Positive H Urine Bilirubin Negative Urine Urobilinogen 0.2 Ur Leukocyte Esterase Negative Urine WBC (Auto) 0-5 Urine RBC (Auto) 0-4 Urine Casts (Auto) 0-8 U Epithel Cells (Auto) 0-5 Urine Bacteria (Auto) Positive ASSESSMENT/PLAN: Problem List - Problem (1) Syncope Assessment/Plan: Frequent falls 2/2 to mechanical vs syncope monitor on tele, for pt evaluation fall precautions maintain safety orthostatics carotid dopplers Code(s): R55 - SYNCOPE AND COLLAPSE (2) Frequent falls Assessment/Plan: home safety to be assessed, as patient lives alone and continues to have episodes of falls head ct negative Code(s): R29.6 - REPEATED FALLS (3) Elevated troponin Assessment/Plan: without chest pain or shortness of breath seen by cardiology in the ED trops elevated in setting of falls, rhabdo Code(s): R79.89 - OTHER SPECIFIED ABNORMAL FINDINGS OF BLOOD CHEMISTRY (4) Failure to thrive Assessment/Plan: dietary consult place on regular diet with supplements Code(s): SRT0280 - (5) Rhabdomyolysis Assessment/Plan: on ivf hydration cpk 694, continue to trend Code(s): M62.82 - RHABDOMYOLYSIS (6) BRUNILDA (acute kidney injury) Assessment/Plan: kidney function stable, had brunilda on last admission monitor. Code(s): N17.9 - ACUTE KIDNEY FAILURE, UNSPECIFIED (7) Anemia Assessment/Plan: will order iron profile for a.m. Code(s): D64.9 - ANEMIA, UNSPECIFIED (8) Foot laceration Assessment/Plan: monitor for pain follow up foot xray Code(s): S91.319A - LACERATION WITHOUT FOREIGN BODY, UNSP FOOT, INIT ENCNTR Visit type - Emergency Visit Emergency Visit: Yes ED Registration Date: 03/13/19 Care time: The patient presented to the Emergency Department on the above date and was hospitalized for further evaluation of their emergent condition. - New Patient This patient is new to me today: Yes Date on this admission: 03/13/19 - Critical Care Critical Care patient: No
[2019-03-13] MEDS: SODIUM CHLORIDE 1,000 ML IV SCH (21:21)
[2019-03-13] MEDS ORDERED: PNEUMOC 13-VAL CONJ-DIP CRM/PF 0.5 ML DISP.SYRIN IM ONE (22:41)
[2019-03-14 08:16] LABS: PHOSPHOROUS 3.1 mg/dL (2.5-4.9)
[2019-03-14] MEDS: DOXAZOSIN MESYLATE 4 MG TABLET PO SCH (09:29)
[2019-03-14] MEDS: FOLIC ACID 1 MG TABLET (FP) PO SCH (09:29)
[2019-03-14] MEDS: SODIUM CHLORIDE 1,000 ML IV SCH (12:29)
--- NOTE | 2019-03-14 14:33 | PN ---
Progress Note, Physician Chief Complaint: appears comfortable, nad, responds to verbal commands, - Current Medication List Current Medications: Active Medications Acetaminophen (Tylenol -) 650 mg PO Q6H PRN PRN Reason: PAIN LEVEL 7 - 10 Diltiazem HCl (Cardizem Cd -) 300 mg PO DAILY [facility] Last Admin: 03/14/19 09:29 Dose: 300 mg Doxazosin Mesylate (Cardura -) 4 mg PO DAILY [facility] Last Admin: 03/14/19 09:29 Dose: 4 mg Folic Acid (Folic Acid -) 1 mg PO DAILY [facility] Last Admin: 03/14/19 09:29 Dose: 1 mg Sodium Chloride (Normal Saline -) 1,000 mls @ 75 mls/hr IV ASDIR [facility] Last Admin: 03/14/19 12: Dose: 75 mls/hr - Objective Vital Signs: Vital Signs Temperature 98.8 F 03/14/19 08:21 Pulse Rate 75 03/14/19 08:21 Respiratory Rate 18 03/14/19 08:21 Blood Pressure 156/83 03/14/19 08:21 O2 Sat by Pulse Oximetry (%) 97 03/14/19 09:00 Constitutional: Yes: Well Nourished Eyes: Yes: EOM Intact HENT: Yes: Normocephalic Neck: Yes: Trachea Midline Cardiovascular: Yes: Regular Rate and Rhythm Respiratory: Yes: Regular, CTA Bilaterally Extremities: Yes: WNL, Other (leceration R foot, sutured,) Neurological: Yes: Alert, Other (confused,) ...Motor Strength: WNL Labs: CBC, BMP 03/13/19 10:20 03/13/19 10:20 INR, PTT INR 1.15 (0.83-1.09) H 03/13/19 10:20 Impression/Plan Impression/Plan: ASSESSMENT/PLAN: Problem List - Problem Syncope Assessment/Plan: Frequent falls 2/2 to mechanical vs syncope monitor on tele, for physical therapy evaluation fall precautions maintain safety hemodynamically stable, ivf dced, eating well, carotid dopplers pending, Code(s): R55 - SYNCOPE AND COLLAPSE Frequent falls Assessment/Plan: home safety to be assessed, as patient lives alone and continues to have episodes of falls head ct negative was admitted last month with same issue, will discuss with SW Code(s): R29.6 - REPEATED FALLS Elevated troponin Assessment/Plan: without chest pain or shortness of breath seen by cardiology in the ED trops elevated in setting of falls, pattie had similar findings last month Code(s): R79.89 - OTHER SPECIFIED ABNORMAL FINDINGS OF BLOOD CHEMISTRY Failure to thrive Assessment/Plan: dietary consult place on regular diet with supplements , eating better, Code(s): [id number] - Rhabdomyolysis Assessment/Plan: on ivf hydration cpk 694, will check the repeat,continue ivf for 24 more hrs Code(s): M62.82 - RHABDOMYOLYSIS (7) Anemia Assessment/Plan: likely acd, last month had barragan done was negative, Code(s): D64.9 - ANEMIA, UNSPECIFIED (8) Foot laceration Assessment/Plan: monitor for pain follow up foot xrayno bleeding, Code(s): S91.319A - LACERATION WITHOUT FOREIGN BODY, UNSP FOOT, INIT ENCNTR Visit type - Emergency Visit Emergency Visit: No - New Patient This patient is new to me today: Yes Date on this admission: 03/14/19 - Critical Care Critical Care patient: No - Discharge Referral Referred to [facility] Med P.C.: No
[2019-03-14] MEDS: DEXTROSE 5%-0.45% SALINE 1,000 ML IV SCH (15:56)
[2019-03-14] MEDS: ASPIRIN 81 MG CHEWABLE TABLETS PO SCH (15:57)
[2019-03-14] MEDS: ACETAMINOPHEN 325 MG TABLET (FP) PO PRN (19:50)
--- NOTE | 2019-03-14 23:23 | EKG ---
Test Reason : Blood Pressure : / mmHG Vent. Rate : 076 BPM Atrial Rate : 076 BPM P-R Int : 152 ms QRS Dur : 086 ms QT Int : 482 ms P-R-T Axes : 072 064 089 degrees QTc Int : 542 ms NORMAL SINUS RHYTHM MODERATE VOLTAGE CRITERIA FOR LVH, MAY BE NORMAL VARIANT PROLONGED QT ABNORMAL ECG WHEN COMPARED WITH ECG OF 13-FEB-2019 09:39, QRS AXIS SHIFTED LEFT NO SIGNIFICANT CHANGE WAS FOUND Confirmed by KEITH ARORA MD ([id number]) on 03/14/2019 11:23:20 PM Referred By: Confirmed By:KEITH ARORA MD
[2019-03-15] MEDS: ACETAMINOPHEN 325 MG TABLET (FP) PO PRN ×2 (04:50→20:07)
[2019-03-15] MEDS: DEXTROSE 5%-0.45% SALINE 1,000 ML IV SCH ×3 (04:51→21:54)
[2019-03-15 06:30] LABS: BASO % 0.9 % (0-2.0); EOS % 7.1 % (0-4.5); HEMATOCRIT 25.9 % (35.4-49); HEMOGLOBIN 8.8 GM/dL (11.7-16.9); LYMPH % 17.9 % (8-40); MCH 31.8 pg (25.7-33.7); MEAN CELL VOLUME 93.6 fl (80-96); MEAN PLT VOLUME 7.1 fl (7.5-11.1); MONO % 11.1 % (3.8-10.2); PLATELET COUNT 182 K/MM3 (134-434); RBC 2.77 M/mm3 (4.00-5.60)
[2019-03-15 07:06] LABS: ALBUMIN 2.5 g/dl (3.4-5.0); BILIRUBIN,TOTAL 0.3 mg/dL (0.2-1); BLOOD UREA NITROGEN 24.9 mg/dL (7-18); CALCIUM 7.8 mg/dL (8.5-10.1); CREATININE 1.2 mg/dL (0.55-1.3); POTASSIUM 3.8 mmol/L (3.5-5.1); TOT PROT 5.6 g/dl (6.4-8.2)
[2019-03-15] MEDS: FOLIC ACID 1 MG TABLET (FP) PO SCH (09:04)
[2019-03-15] MEDS: DOXAZOSIN MESYLATE 4 MG TABLET PO SCH (09:04)
[2019-03-15] MEDS: ASPIRIN 81 MG CHEWABLE TABLETS PO SCH (09:04)
--- NOTE | 2019-03-15 13:04 | PN ---
Physical Exam: SUBJECTIVE: Patient seen and examined. He appears comfortable. OBJECTIVE: Vital Signs Period Temp Pulse Resp BP Sys/Gallardo Pulse Ox Last 24 Hr 97.4 F-98.2 F 50-74 18-20 103-145/51-65 96-97 GENERAL: The patient is awake, alert, in no acute distress. LUNGS: Breath sounds equal, clear to auscultation bilaterally, no wheezes, no crackles, no accessory muscle use. HEART: Regular rate and rhythm, S1, S2 without murmur, rub or gallop. ABDOMEN: Soft, nontender, nondistended, normoactive bowel sounds, no guarding, no rebound, no hepatosplenomegaly, no masses. EXTREMITIES: 2+ pulses, warm, well-perfused, no edema. Sutured laceration dorsal right foot. Laboratory Results - last 24 hr 03/15/19 03/15/19 03/15/19 05:55 05:55 05:55 WBC 5.0 RBC 2.77 L Hgb 8.8 L Hct 25.9 L D MCV 93.6 MCH 31.8 MCHC 34.0 RDW 15.0 Plt Count 182 D MPV 7.1 L Absolute Neuts (auto) 3.2 Neutrophils % 63.0 D Lymphocytes % 17.9 D Monocytes % 11.1 H Eosinophils % 7.1 H D Basophils % 0.9 Nucleated RBC % 0 Sodium 143 Potassium 3.8 Chloride 111 H Carbon Dioxide 23 Anion Gap 8 BUN 24.9 H Creatinine 1.2 Est GFR (CKD-EPI)AfAm 62.20 Est GFR (CKD-EPI)NonAf 53.67 Random Glucose 126 H Calcium 7.8 L Ferritin 235.4 Total Bilirubin 0.3 AST 20 ALT 20 Alkaline Phosphatase 47 Creatine Kinase Total Protein 5.6 L Albumin 2.5 L 03/15/19 05:55 WBC RBC Hgb Hct MCV MCH MCHC RDW Plt Count MPV Absolute Neuts (auto) Neutrophils % Lymphocytes % Monocytes % Eosinophils % Basophils % Nucleated RBC % Sodium Potassium Chloride Carbon Dioxide Anion Gap BUN Creatinine Est GFR (CKD-EPI)AfAm Est GFR (CKD-EPI)NonAf Random Glucose Calcium Ferritin Total Bilirubin AST ALT Alkaline Phosphatase Creatine Kinase 139 Total Protein Albumin Active Medications Generic Name Dose Route Start Last Admin Trade Name Freq PRN Reason Stop Dose Admin Acetaminophen 650 mg 03/13/19 23:04 03/15/19 04:50 Tylenol - PO 650 mg Q6H PRN Administration PAIN LEVEL 7 - 10 Aspirin 81 mg 03/14/19 15:15 03/15/19 09:04 Asa - PO 81 mg DAILY [facility] Administration Diltiazem HCl 300 mg 03/14/19 10:00 03/15/19 09:04 Cardizem Cd - PO 300 mg DAILY [facility] Administration Doxazosin Mesylate 4 mg 03/14/19 10:00 03/15/19 09:04 Cardura - PO 4 mg DAILY [facility] Administration Folic Acid 1 mg 03/14/19 10:00 03/15/19 09:04 Folic Acid - PO 1 mg DAILY [facility] Administration Dextrose/Sodium Chloride 1,000 mls @ 75 mls/hr 03/14/19 15:30 03/15/19 04:51 D5-1/2ns - IV 75 mls/hr ASDIR [facility] Administration ASSESSMENT/PLAN: This is an 88 year old man with a history of HTN, atrial fib, hyperlipidemia, dementia, anemia, stage 3 CKD who presented to the ED after a fall. 1. Rhabdomyolysis - Improved 2. s/p fall - Recurrent - Carotid dopplers show possible 50-70% stenosis of left carotid bulb - PT evaluation when able to participate 3. Demand ischemia 4. Stage 3 CKD 5. HTN - Continue Cardizem CD, Cardura 6. Hyperlipidemia 7. Atrial fibrillation, paroxysmal - Currently in sinus rhythm - Continue Cardizem CD 8. Dementia 9. Anemia secondary to chronic illness, folate deficiency - Hgb 8.8 today (10.7 on 03/13) - Check stool occult blood - Continue folic acid 10. Laceration, right foot - Sutured in ED 11. Severe malnutrition - Ensure Enlive - Start multivitamin Visit type - Emergency Visit Emergency Visit: Yes ED Registration Date: 03/13/19 Care time: The patient presented to the Emergency Department on the above date and was hospitalized for further evaluation of their emergent condition. - New Patient This patient is new to me today: Yes Date on this admission: 03/15/19 - Critical Care Critical Care patient: No - Discharge Referral Referred to [facility] Med P.C.: No
[2019-03-15] MEDS ORDERED: ACETAMINOPHEN 325 MG TABLET (FP) PO PRN (20:10)
[2019-03-16 03:19] LABS: EPI CELLS 0.3 /HPF (0-5/HPF); HYALINE CASTS 1 /lpf (0-8); URINE APPEARANCE CLEAR; URINE BACTERIA 2.9 /hpf (NEGATIVE); URINE BILIRUBIN NEGATIVE (NEGATIVE); URINE COLOR YELLOW; URINE GLUCOSE (UA) NEGATIVE (NEGATIVE); URINE KETONE NEGATIVE (NEGATIVE); URINE LEUK ESTERASE NEGATIVE (NEGATIVE); URINE NITRITE NEGATIVE (NEGATIVE); URINE PROTEIN NEGATIVE (NEGATIVE); URINE RBC 3 /hpf (0-4); URINE UROBILINOGEN 0.2 mg/dL (0.2-1.0); URINE WBC 1 /hpf (0-5)
[2019-03-16 08:32] LABS: HEMATOCRIT 26.1 % (35.4-49); HEMOGLOBIN 8.8 GM/dL (11.7-16.9); MCH 31.5 pg (25.7-33.7); MCHC 33.8 g/dl (32.0-35.9); MEAN CELL VOLUME 93.2 fl (80-96); MEAN PLT VOLUME 7.6 fl (7.5-11.1); PLATELET COUNT 175 K/MM3 (134-434); WHITE BLOOD COUNT 5.2 K/mm3 (4.0-10.0)
--- NOTE | 2019-03-16 08:37 | PN ---
Progress Note, Physician Chief Complaint: Patient states hes not sleeping well and feels weak. History of Present Illness: Patient is an 88 year old male who (speaks primarily Turkmen) presents to the ED today after an unwitnessed fall at home. Patient lives alone and has an aide that comes in three times per week. Aide found patient collapsed on the floor today of unknown amount of time. Aide was not in the ED during interview, however, patient's daughter was present and reports that patient has been having frequent falls at home. Last week she noted that his left left was edematous and red with some drainage (provided me with pictures from her phone) , since then, she states he has been weaker. However, she is not in close touch with her father and did not have any significant medical information further to provide. On exam patient is awake and alert and in no acute distress, eating his dinner, facial symmetry. After fall today he sustained injury/laceration to his right dorsal foot and is s/p suturing in the ED. Patient denies JEAN, LOC, hitting his head, changes in vision, weakness or chest pain. Patient had a recent admission in February 2019 at [facility] with similar presentation. ER course was notable for: - Current Medication List Current Medications: Active Medications Acetaminophen (Tylenol -) 650 mg PO Q6H PRN PRN Reason: PAIN LEVEL 7 - 10 Aspirin (Asa -) 81 mg PO DAILY [facility] Diltiazem HCl (Cardizem Cd -) 300 mg PO DAILY [facility] Doxazosin Mesylate (Cardura -) 4 mg PO DAILY [facility] Folic Acid (Folic Acid -) 1 mg PO DAILY [facility] Dextrose/Sodium Chloride (D5-1/2ns -) 1,000 mls @ 75 mls/hr IV ASDIR [facility] Last Admin: 03/15/19 21:54 Dose: 75 mls/hr Multivitamins/Minerals (Theragran-M) 1 each PO DAILY [facility] - Objective Vital Signs: Vital Signs Temperature 98.0 F 03/16/19 06:00 Pulse Rate 65 03/16/19 06:00 Respiratory Rate 18 03/16/19 06:00 Blood Pressure 123/54 L 03/16/19 06:00 O2 Sat by Pulse Oximetry (%) 97 03/15/19 21:00 Constitutional: Yes: Well Nourished, No Distress, Calm, Thin Eyes: Yes: WNL, Conjunctiva Clear HENT: Yes: WNL, Atraumatic, Normocephalic Neck: Yes: WNL, Supple, Trachea Midline Cardiovascular: Yes: WNL, Regular Rate and Rhythm Respiratory: Yes: WNL, Regular, CTA Bilaterally Gastrointestinal: Yes: WNL, Normal Bowel Sounds ...Rectal Exam: Yes: Deferred Genitourinary: Yes: WNL Breast(s): Yes: WNL Musculoskeletal: Yes: Muscle Weakness Edema: Yes Edema: LLE: 1+, RLE: 1+ Peripheral Pulses WNL: Yes Peripheral Pulses: Left Radial: 2+, Right Radial: 2+, Left Doralis Pedis: 2+, Right Dorsalis Pedis: 2+, Left Femoral: 2+, Right Femoral: 2+ Integumentary: Yes: WNL Neurological: Yes: Unsteady Gait, Weakness ...Motor Strength: LLE, RLE (weakness) Psychiatric: Yes: WNL Labs: CBC, BMP 03/16/19 07:25 INR, PTT INR 1.15 (0.83-1.09) H 03/13/19 10:20 - ....Imaging Cat Scan: Report Reviewed (HCT no acute pathology. 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) Ultrasound: Report Reviewed (Carotid dopplers left caroltid 50-70% stenosis, right no stenosis) Problem List - Problems (1) Foot laceration Assessment/Plan: after fall sustained injury/laceration to his right dorsal foot and is s/p suturing in the ED suture intact Code(s): S91.319A - LACERATION WITHOUT FOREIGN BODY, UNSP FOOT, INIT ENCNTR (2) Frequent falls Assessment/Plan: PTfollowing HCT negative, CSpine with degenerative changes SW requested for SNF/ Short term rehab Code(s): R29.6 - REPEATED FALLS (3) Rhabdomyolysis Assessment/Plan: CK 649 on admission, IVF given trended down to 149 Code(s): M62.82 - RHABDOMYOLYSIS (4) Syncope Assessment/Plan: Frequent falls 2/2 to mechanical vs syncope monitor on tele DE following fall precautions carotid dopplers noted cardiology consultation appreciated Code(s): R55 - SYNCOPE AND COLLAPSE (5) Prophylactic measure Assessment/Plan: FEN regualar diet additional IVF given on admission C/w D5w 1/2 NS monitor electrolytes DVT no chemical antiogulation given falls can start asa tomorrow Dispo maintain as in patient full code placement to SNF/STR Code(s): Z29.9 - ENCOUNTER FOR PROPHYLACTIC MEASURES, UNSPECIFIED (6) Elevated troponin Code(s): R79.89 - OTHER SPECIFIED ABNORMAL FINDINGS OF BLOOD CHEMISTRY (7) Anemia, folate deficiency Assessment/Plan: Anemia secondary to chronic illness, folate deficiency Hgb 8.8 today (10.7 on 03/13) stool occult blood pending c/w folic acid Code(s): D52.9 - FOLATE DEFICIENCY ANEMIA, UNSPECIFIED (8) Paroxysmal A-fib Assessment/Plan: c/w cardizem CD Code(s): I48.0 - PAROXYSMAL ATRIAL FIBRILLATION Visit type - Emergency Visit Emergency Visit: Yes ED Registration Date: 03/13/19 Care time: The patient presented to the Emergency Department on the above date and was hospitalized for further evaluation of their emergent condition. - New Patient This patient is new to me today: Yes Date on this admission: 03/16/19 - Critical Care Critical Care patient: No - Discharge Referral Referred to [facility] Med P.C.: No
[2019-03-16 08:40] LABS: BLOOD UREA NITROGEN 19.6 mg/dL (7-18); CALCIUM 8.5 mg/dL (8.5-10.1)
[2019-03-16] MEDS ORDERED: MULTIVITAMINS THER W-MINERALS COMBO TABLET (FP) PO SCH (10:00)
[2019-03-16] MEDS ORDERED: PT OWN MED DRAWER 7, Y5N ONE (11:12)
[2019-03-16] MEDS: FOLIC ACID 1 MG TABLET (FP) PO SCH (11:27)
[2019-03-16] MEDS: MULTIVITAMINS THER W-MINERALS COMBO TABLET (FP) PO SCH (11:27)
[2019-03-16] MEDS: DOXAZOSIN MESYLATE 4 MG TABLET PO SCH (11:27)
[2019-03-16] MEDS: ASPIRIN 81 MG CHEWABLE TABLETS PO SCH (11:27)
[2019-03-16] MEDS: DEXTROSE 5%-0.45% SALINE 1,000 ML IV SCH ×2 (16:16→22:12)
[2019-03-17 08:33] LABS: BASO % 0.8 % (0-2.0); HEMATOCRIT 27.7 % (35.4-49); HEMOGLOBIN 9.5 GM/dL (11.7-16.9); LYMPH % 20.1 % (8-40); MCH 31.8 pg (25.7-33.7); MCHC 34.2 g/dl (32.0-35.9); MEAN CELL VOLUME 92.9 fl (80-96); MEAN PLT VOLUME 7.4 fl (7.5-11.1); NEUT % 64.1 % (42.8-82.8); PLATELET COUNT 180 K/MM3 (134-434); RBC 2.99 M/mm3 (4.00-5.60); RDW 14.9 % (11.9-15.9); WHITE BLOOD COUNT 6.1 K/mm3 (4.0-10.0)
[2019-03-17 09:32] LABS: ALBUMIN 2.8 g/dl (3.4-5.0); BILIRUBIN,TOTAL 0.6 mg/dL (0.2-1); BLOOD UREA NITROGEN 18.3 mg/dL (7-18); CALCIUM 8.2 mg/dL (8.5-10.1); POTASSIUM 3.7 mmol/L (3.5-5.1); TOT PROT 6.3 g/dl (6.4-8.2)
[2019-03-17] MEDS: DOXAZOSIN MESYLATE 4 MG TABLET PO SCH (10:47)
[2019-03-17] MEDS: MULTIVITAMINS THER W-MINERALS COMBO TABLET (FP) PO SCH (10:47)
[2019-03-17] MEDS: FOLIC ACID 1 MG TABLET (FP) PO SCH (10:47)
[2019-03-17] MEDS: ASPIRIN 81 MG CHEWABLE TABLETS PO SCH (10:47)
[2019-03-17] MEDS ORDERED: NITROFURANTOIN MACROCRYSTAL 50 MG CAPSULE (FP) PO SCH (12:00)
[2019-03-17] MEDS: DEXTROSE 5%-0.45% SALINE 1,000 ML IV SCH ×2 (13:30→20:47)
--- NOTE | 2019-03-17 15:37 | PN ---
Physical Exam: SUBJECTIVE: Patient seen and examined OBJECTIVE: Patient is an 88 year old male who (speaks primarily Bengali) presents to the ED today after an unwitnessed fall at home. Patient lives alone and has an aide that comes in three times per week. Aide found patient collapsed on the floor today of unknown amount of time. CPK elevated on admission and pt sustained injury to right foot. He is pending placement to SNF for weakness Vital Signs Period Temp Pulse Resp BP Sys/Gallardo Pulse Ox Last 24 Hr 97.7 F-98.6 F 67-81 18-19 126-147/64-90 96-97 GENERAL: The patient is in no acute distress, hard of hearing, A&O x 2. ENT: Ears normal, nares patent, oropharynx clear without exudates. Moist mucous membranes. NECK: Normal range of motion, supple, no midline tenderness LUNGS: Breath sounds equal, clear to auscultation bilaterally. No wheezes, and no crackles. HEART:Regular rate and rhythm, normal S1 and S2 without murmur, rub or gallop. ABDOMEN: Soft, nontender, normoactive bowel sounds. EXTREMITIES: Normal range of motion, 1+ edema b/l lower extremities NEUROLOGICAL: facial symmetry, Normal speech. No focal neurological deficits. SKIN: Right foot laceration noted on the dorsum of the foot, near the great toe , approximately 3 inches, sutured. no active bleeding. Laboratory Results - last 24 hr 03/17/19 03/17/19 07:50 07:50 WBC 6.1 RBC 2.99 L Hgb 9.5 L Hct 27.7 L MCV 92.9 MCH 31.8 MCHC 34.2 RDW 14.9 Plt Count 180 MPV 7.4 L Absolute Neuts (auto) 3.9 Neutrophils % 64.1 Lymphocytes % 20.1 Monocytes % 10.0 Eosinophils % 5.0 H Basophils % 0.8 Nucleated RBC % 0 Sodium 139 Potassium 3.7 Chloride 107 Carbon Dioxide 24 Anion Gap 8 BUN 18.3 H Creatinine 1.0 Est GFR (CKD-EPI)AfAm 77.54 Est GFR (CKD-EPI)NonAf 66.90 Random Glucose 96 Calcium 8.2 L Magnesium 2.0 Total Bilirubin 0.6 AST 17 ALT 19 Alkaline Phosphatase 55 Total Protein 6.3 L Albumin 2.8 L Active Medications Generic Name Dose Route Start Last Admin Trade Name Freq PRN Reason Stop Dose Admin Acetaminophen 650 mg 03/15/19 20:10 Tylenol - PO Q6H PRN PAIN LEVEL 7 - 10 Aspirin 81 mg 03/16/19 10:00 03/17/19 10:47 Asa - PO 81 mg DAILY [facility] Administration Diltiazem HCl 300 mg 03/16/19 10:00 03/17/19 10:47 Cardizem Cd - PO 300 mg DAILY [facility] Administration Doxazosin Mesylate 4 mg 03/16/19 10:00 03/17/19 10:47 Cardura - PO 4 mg DAILY [facility] Administration Folic Acid 1 mg 03/16/19 10:00 03/17/19 10:47 Folic Acid - PO 1 mg DAILY [facility] Administration Dextrose/Sodium Chloride 1,000 mls @ 75 mls/hr 03/15/19 20:10 03/17/19 13:30 D5-1/2ns - IV 75 mls/hr ASDIR [facility] Administration Multivitamins/Minerals 1 each 03/16/19 10:00 03/17/19 10:47 Theragran-M PO 1 each DAILY [facility] Administration ASSESSMENT/PLAN: Problem List - Problems (1) Syncope Assessment/Plan: Frequent falls 2/2 to mechanical vs syncope fall precautions maintain safety orthostatics carotid dopplers noted. on asa, start lipitor Pt following Code(s): R55 - SYNCOPE AND COLLAPSE (2) Frequent falls Assessment/Plan: home safety to be assessed, as patient lives alone and continues to have episodes of falls head ct negative Code(s): R29.6 - REPEATED FALLS (3) Elevated troponin Assessment/Plan: without chest pain or shortness of breath seen by cardiology in the ED trops elevated in setting of falls, rhabdo Code(s): R79.89 - OTHER SPECIFIED ABNORMAL FINDINGS OF BLOOD CHEMISTRY (4) Failure to thrive Assessment/Plan: dietary consult place on regular diet with supplements Code(s): [id number] - (5) Rhabdomyolysis Assessment/Plan: on ivf hydration cpk 694, continue to trend Code(s): M62.82 - RHABDOMYOLYSIS (6) BRUNILDA (acute kidney injury) Assessment/Plan: kidney function stable, had brunilda on last admission monitor. Code(s): N17.9 - ACUTE KIDNEY FAILURE, UNSPECIFIED (7) Anemia Assessment/Plan: monitor with daily labs Code(s): D64.9 - ANEMIA, UNSPECIFIED (8) Foot laceration Assessment/Plan: monitor for pain follow up foot xray Code(s): S91.319A - LACERATION WITHOUT FOREIGN BODY, UNSP FOOT, INIT ENCNTR Visit type - Emergency Visit Emergency Visit: Yes ED Registration Date: 03/13/19 Care time: The patient presented to the Emergency Department on the above date and was hospitalized for further evaluation of their emergent condition. - New Patient This patient is new to me today: No - Critical Care Critical Care patient: No - Discharge Referral Referred to [facility] Med P.C.: No
[2019-03-17] MEDS ORDERED: POLYETHYLENE GLYCOL 3350 119 GM BTL PO ONE (18:47)
[2019-03-17] MEDS ORDERED: LORazepam 2 MG/ML SDV VIAL IM ONE (23:04)
[2019-03-18] MEDS ORDERED: PT OWN MED DRAWER 7, Y5N ONE (09:27)
[2019-03-18] MEDS: FOLIC ACID 1 MG TABLET (FP) PO SCH (09:45)
[2019-03-18] MEDS: MULTIVITAMINS THER W-MINERALS COMBO TABLET (FP) PO SCH (09:45)
[2019-03-18] MEDS: ASPIRIN 81 MG CHEWABLE TABLETS PO SCH (09:45)
[2019-03-18] MEDS: DOXAZOSIN MESYLATE 4 MG TABLET PO SCH (09:46)
[2019-03-18 11:10] LABS: BASO % 1.2 % (0-2.0); EOS % 7.4 % (0-4.5); HEMATOCRIT 26.2 % (35.4-49); HEMOGLOBIN 9.1 GM/dL (11.7-16.9); MCHC 34.8 g/dl (32.0-35.9); MEAN PLT VOLUME 7.1 fl (7.5-11.1); MONO % 8.5 % (3.8-10.2); NEUT % 65.9 % (42.8-82.8); PLATELET COUNT 185 K/MM3 (134-434); RBC 2.85 M/mm3 (4.00-5.60); RDW 14.5 % (11.9-15.9); WHITE BLOOD COUNT 4.6 K/mm3 (4.0-10.0)
[2019-03-18 11:38] LABS: ALBUMIN 2.6 g/dl (3.4-5.0); BILIRUBIN,TOTAL 0.6 mg/dL (0.2-1); BLOOD UREA NITROGEN 19.4 mg/dL (7-18); CALCIUM 8.2 mg/dL (8.5-10.1); CREATININE 1.1 mg/dL (0.55-1.3); MAGNESIUM 1.9 mg/dL (1.8-2.4); TOT PROT 6.4 g/dl (6.4-8.2)
--- NOTE | 2019-03-18 11:44 | DS ---
Physical Exam: SUBJECTIVE: Patient seen and examined OBJECTIVE: Patient is an 88 year old male who (speaks primarily Swedish) presents to the ED today after an unwitnessed fall at home. Patient lives alone and has an aide that comes in three times per week. Aide found patient collapsed on the floor today of unknown amount of time. CPK elevated on admission and pt sustained injury to right foot. He is pending placement to SNF for weakness Vital Signs Period Temp Pulse Resp BP Sys/Gallardo Pulse Ox Last 24 Hr 97.8 F-98.4 F 58-73 18-18 99-136/55-72 98 PHYSICAL EXAM GENERAL: The patient is in no acute distress, hard of hearing, A&O x 2. ENT: Ears normal, nares patent, oropharynx clear without exudates. Moist mucous membranes. NECK: Normal range of motion, supple, no midline tenderness LUNGS: Breath sounds equal, clear to auscultation bilaterally. No wheezes, and no crackles. HEART:Regular rate and rhythm, normal S1 and S2 without murmur, rub or gallop. ABDOMEN: Soft, nontender, normoactive bowel sounds. EXTREMITIES: Normal range of motion, 1+ edema b/l lower extremities NEUROLOGICAL: facial symmetry, Normal speech. No focal neurological deficits. SKIN: Right foot laceration noted on the dorsum of the foot, near the great toe , approximately 3 inches, sutured. no active bleeding. LABS Laboratory Results - last 24 hr 03/18/19 03/18/19 10:52 10:52 WBC 4.6 RBC 2.85 L Hgb 9.1 L Hct 26.2 L MCV 92.0 MCH 32.0 MCHC 34.8 RDW 14.5 Plt Count 185 MPV 7.1 L Absolute Neuts (auto) 3.0 Neutrophils % 65.9 Lymphocytes % 17.0 Monocytes % 8.5 Eosinophils % 7.4 H Basophils % 1.2 Nucleated RBC % 0 Sodium 139 Potassium 4.0 Chloride 106 Carbon Dioxide 27 Anion Gap 6 L BUN 19.4 H Creatinine 1.1 Est GFR (CKD-EPI)AfAm 69.10 Est GFR (CKD-EPI)NonAf 59.62 Random Glucose 105 Calcium 8.2 L Magnesium 1.9 Total Bilirubin 0.6 AST 17 ALT 16 Alkaline Phosphatase 57 Total Protein 6.4 Albumin 2.6 L HOSPITAL COURSE: Date of Admission:03/13/19 Date of Discharge: 03/18/19 Minutes to complete discharge: 45 Discharge Summary Problems reviewed: Yes Reason For Visit: FAILURE TO THRIVE Current Active Problems Anemia (Acute) Anemia, folate deficiency (Acute) Elevated troponin (Acute) Failure to thrive (Acute) Foot laceration (Acute) Frequent falls (Acute) Paroxysmal A-fib (Acute) Prophylactic measure (Acute) Rhabdomyolysis (Acute) Syncope (Acute) Condition: Improved - Instructions Diet, Activity, Other Instructions: Discharge to rehab Started on Levaquin on 03/18/2019. Continue Levaquin 250mg daily for 7 more days total for UTI. Referrals: ON STAFF,NOT [Non Staff, Medical] - Disposition: [facility] - Home Medications Comprehensive Discharge Medication List: Ambulatory Orders Atorvastatin Ca [Lipitor] 10 mg PO DAILY 06/09/16 Diltiazem Cd [Cardizem Cd -] 300 mg PO DAILY 06/09/16 Doxazosin Mesylate [Cardura] 4 mg PO DAILY 06/09/16 Folic Acid - 1 mg PO DAILY #30 tablet 02/16/19 Aspirin [ASA -] 81 mg PO DAILY #0 tab.chew 03/18/19 Docusate Sodium [Colace -] 100 mg PO TID #0 capsule 03/18/19 Nitrofurantoin Macrocrystal [Macrodantin -] 50 mg PO Q6HPO capsule 03/18/19 Polyethylene Glycol 3350 [Miralax 119 gm Btl -] 17 gm PO DAILY #0 bottle levoFLOXacin [Levaquin] 250 mg PO DAILY #0 tab 03/18/19 Problem List - Problems (1) Syncope Assessment/Plan: Frequent falls 2/2 to mechanical vs syncope fall precautions maintain safety orthostatics carotid dopplers noted. on asa, start lipitor Pt following Code(s): R55 - SYNCOPE AND COLLAPSE (2) Frequent falls Assessment/Plan: home safety to be assessed, as patient lives alone and continues to have episodes of falls head ct negative Code(s): R29.6 - REPEATED FALLS (3) Elevated troponin Assessment/Plan: without chest pain or shortness of breath seen by cardiology in the ED trops elevated in setting of falls, rhabdo Code(s): R79.89 - OTHER SPECIFIED ABNORMAL FINDINGS OF BLOOD CHEMISTRY (4) Failure to thrive Assessment/Plan: dietary consult place on regular diet with supplements Code(s): HVB5083 - (5) Rhabdomyolysis Assessment/Plan: resolved Code(s): M62.82 - RHABDOMYOLYSIS (6) BRUNILDA (acute kidney injury) Assessment/Plan: kidney function stable, had brunilda on last admission monitor. Code(s): N17.9 - ACUTE KIDNEY FAILURE, UNSPECIFIED (7) Anemia Assessment/Plan: monitor with daily labs Code(s): D64.9 - ANEMIA, UNSPECIFIED (8) Foot laceration Assessment/Plan: monitor for pain follow up foot xray Code(s): S91.319A - LACERATION WITHOUT FOREIGN BODY, UNSP FOOT, INIT ENCNTR (9) UTI (urinary tract infection) Assessment/Plan: levaquin 500 x 1 then levaquin 250mg daily x 5 days Code(s): N39.0 - URINARY TRACT INFECTION, SITE NOT SPECIFIED This patient is new to me today: No Emergency Visit: Yes ED Registration Date: 03/13/19 Care time: The patient presented to the Emergency Department on the above date and was hospitalized for further evaluation of their emergent condition. Critical Care patient: No - Discharge Referral Referred to [facility] Med P.C.: No
[2019-03-18] MEDS: POLYETHYLENE GLYCOL 3350 119 GM BTL PO SCH (11:52)
[2019-03-18] MEDS ORDERED: NITROFURANTOIN MACROCRYSTAL 50 MG CAPSULE (FP) PO SCH (12:00)
[2019-03-18] MEDS: DOCUSATE SODIUM 100 MG CAPSULE (FP) PO SCH ×3 (14:30→22:19)
[2019-03-18] MEDS ORDERED: ATORVASTATIN CA 20 MG TABLET (FP) PO SCH (22:00)
[2019-03-19] MEDS: DOCUSATE SODIUM 100 MG CAPSULE (FP) PO SCH ×2 (06:14→14:07)
[2019-03-19] MEDS ORDERED: PT OWN MED DRAWER 7, Y5N ONE (10:51)
[2019-03-19] MEDS: ASPIRIN 81 MG CHEWABLE TABLETS PO SCH (11:23)
[2019-03-19] MEDS: MULTIVITAMINS THER W-MINERALS COMBO TABLET (FP) PO SCH (11:23)
[2019-03-19] MEDS: FOLIC ACID 1 MG TABLET (FP) PO SCH (11:23)
[2019-03-19] MEDS: DOXAZOSIN MESYLATE 4 MG TABLET PO SCH (11:23)
[2019-03-19] MEDS: POLYETHYLENE GLYCOL 3350 119 GM BTL PO SCH (11:24)
[2019-03-19] MEDS ORDERED: BISACODYL 10 MG SUPP.RECT RC ONE (12:08)
--- NOTE | 2019-03-19 13:52 | PN ---
Physical Exam: SUBJECTIVE: Patient seen and examined OBJECTIVE: stool occult negative for d/c to rehab Patient is an 88 year old male who (speaks primarily Kazakh) presents to the ED today after an unwitnessed fall at home. Patient lives alone and has an aide that comes in three times per week. Aide found patient collapsed on the floor today of unknown amount of time. CPK elevated on admission and pt sustained injury to right foot. He is pending placement to SNF for weakness. Vital Signs Period Temp Pulse Resp BP Sys/Gallardo Pulse Ox Last 24 Hr 98.4 F-98.8 F 65-74 18-18 109-131/53-64 94 GENERAL: The patient is in no acute distress, hard of hearing, english speaking ENT: Ears normal, nares patent, oropharynx clear without exudates. Moist mucous membranes. NECK: Normal range of motion, supple, no midline tenderness LUNGS: Breath sounds equal, clear to auscultation bilaterally. No wheezes, and no crackles. HEART:Regular rate and rhythm, normal S1 and S2 without murmur, rub or gallop. ABDOMEN: Soft, nontender, normoactive bowel sounds. EXTREMITIES: Normal range of motion, 1+ edema b/l lower extremities NEUROLOGICAL: facial symmetry, Normal speech. No focal neurological deficits. SKIN: Right foot laceration noted on the dorsum of the foot, near the great toe , approximately 3 inches, sutured. no active bleeding. Laboratory Results - last 24 hr 03/19/19 10:34 Stool Occult Blood Negative Active Medications Generic Name Dose Route Start Last Admin Trade Name Freq PRN Reason Stop Dose Admin Acetaminophen 650 mg 03/15/19 20:10 Tylenol - PO Q6H PRN PAIN LEVEL 7 - 10 Aspirin 81 mg 03/16/19 10:00 03/19/19 11:23 Asa - PO 81 mg DAILY [facility] Administration Atorvastatin Calcium 20 mg 03/18/19 22:00 03/18/19 22:19 Lipitor - PO 20 mg HS [facility] Administration Diltiazem HCl 300 mg 03/16/19 10:00 03/19/19 11:23 Cardizem Cd - PO 300 mg DAILY [facility] Administration Docusate Sodium 100 mg 03/18/19 12:00 03/19/19 06:14 Colace - PO 100 mg TID [facility] Administration Doxazosin Mesylate 4 mg 03/16/19 10:00 03/19/19 11:23 Cardura - PO 4 mg DAILY [facility] Administration Folic Acid 1 mg 03/16/19 10:00 03/19/19 11:23 Folic Acid - PO 1 mg DAILY [facility] Administration Levofloxacin 250 mg 03/19/19 06:00 03/19/19 06:14 Levaquin - PO 250 mg DAILY@0600 [facility] Administration Multivitamins/Minerals 1 each 03/16/19 10:00 03/19/19 11:23 Theragran-M PO 1 each DAILY [facility] Administration Polyethylene Glycol 17 gm 03/18/19 10:00 03/19/19 11:24 Miralax (For Daily Use) - PO Not Given DAILY [facility] ASSESSMENT/PLAN: Problem List - Problems (1) Syncope Assessment/Plan: Frequent falls 2/2 to mechanical vs syncope fall precautions maintain safety carotid dopplers noted. on asa, start lipitor Pt following Code(s): R55 - SYNCOPE AND COLLAPSE (2) Frequent falls Assessment/Plan: for rehab, awaiting placement Code(s): R29.6 - REPEATED FALLS (3) Elevated troponin Assessment/Plan: without chest pain or shortness of breath seen by cardiology in the ED trops elevated in setting of falls, rhabdo no chest pain Code(s): R79.89 - OTHER SPECIFIED ABNORMAL FINDINGS OF BLOOD CHEMISTRY (4) Failure to thrive Assessment/Plan: dietary consult place on regular diet with supplements Code(s): SQA2143 - (5) Rhabdomyolysis Assessment/Plan: resolved Code(s): M62.82 - RHABDOMYOLYSIS (6) BRUNILDA (acute kidney injury) Assessment/Plan: kidney function stable, had brunilda on last admission monitor. Code(s): N17.9 - ACUTE KIDNEY FAILURE, UNSPECIFIED (7) Anemia Assessment/Plan: monitor with daily labs stool occult negative Code(s): D64.9 - ANEMIA, UNSPECIFIED (8) Foot laceration Assessment/Plan: monitor for pain Code(s): S91.319A - LACERATION WITHOUT FOREIGN BODY, UNSP FOOT, INIT ENCNTR (9) UTI (urinary tract infection) Assessment/Plan: levaquin 500 x 1 then levaquin 250mg daily x 5 days Code(s): N39.0 - URINARY TRACT INFECTION, SITE NOT SPECIFIED Visit type - Emergency Visit Emergency Visit: Yes ED Registration Date: 03/13/19 Care time: The patient presented to the Emergency Department on the above date and was hospitalized for further evaluation of their emergent condition. - New Patient This patient is new to me today: No - Critical Care Critical Care patient: No - Discharge Referral Referred to [facility] Med P.C.: No
[2019-03-20 00:27] VITALS: BP 148/66; PULSE 75; TEMP 98.8
== END 2019-03-19 20:00 | DRG 557 ==
LOC: JER 08:52 → JERBED 14:45 → OBSVTOIN 14:45 → J4S 20:44 → J5S 03-15 19:48
PROVIDERS: ADMIT Internal Medicine; ATTEND Nurse Practitioner Family
DX: M62.82 Rhabdomyolysis (principal); E43 Unspecified severe protein-calorie malnutrition; N17.9 Acute kidney failure, unspecified; I24.8 Other forms of acute ischemic heart disease; Z68.1 Body mass index [BMI] 19.9 or less, adult; R55 Syncope and collapse; D52.9 Folate deficiency anemia, unspecified; S91.319A Laceration without foreign body, unspecified foot, initial encounter; R79.89 Other specified abnormal findings of blood chemistry; R29.6 Repeated falls; I48.0 Paroxysmal atrial fibrillation; N18.3 Chronic kidney disease, stage 3 (moderate); F03.90 Unspecified dementia, unspecified severity, without behavioral disturbance, psychotic disturbance, mood disturbance, and anxiety; R62.7 Adult failure to thrive; E78.5 Hyperlipidemia, unspecified; W19.XXXA Unspecified fall, initial encounter; Y93.9 Activity, unspecified; Y92.89 Other specified places as the place of occurrence of the external cause; Y99.9 Unspecified external cause status
CPT/HCPCS: 36415; 70450-TC; 71045-TC-FY; 72125-TC; 73630-TC-RT-FY; 80048; 80053; 81003; 82272; 82550; 82553; 82728; 83540; 83550; 83735; 84100; 84484; 85025; 85027; 85610; 87086; 87186; 90670; 90715; 93005; 93010; 93880-TC; 97116-GP; 97162-GP; 99283-25; J7030